=== PATIENT | male | born 1990 | race Two or more races ===

== ENCOUNTER 2024-05-14 21:09 | Emergency (ER) | payer MEDICARE, MEDICAID ==
[~2024-05-14] VITALS: Ht 167.6 cm; Wt 109.0 kg
[2024-05-14 21:13] VITALS: BP 177/111; RESP 18; O2SAT 99
--- NOTE | 2024-05-14 21:27 | ED.PDOC ---
HPI Comments 33 y.o male with PMH of DM, schizophrenia, bipolar disorder, and hyperlipidemia, presents to the ED via EMS for a chief complaint of substernal chest pain associated with dizziness, head and abdominal pain that started earlier today. EMS reports picking patient up from a gas station, noted he had an empty bottle of liquor with him and admitted to smoking 2 grams of methamphetamine today as well throughout the week with marijuana and cocaine. Patient reports after he coughed phlegm up, he became dizzy, described as room spinning and felt "euphoric". Patient also mentions non compliance to medication like metformin in a while now and is not up to date with his health. Chief Complaint: Chest Pain Time Seen by MD: 21:15 Reviewed Notes: Nurses Notes, Ruby On Rails Engineer Notes, Medications, Allergies Information Source: Patient, Emergency Med Personnel Mode of Arrival: EMS Severity: Moderate Timing: Hours Duration: Since onset Location: Substernal Radiation: No Radiation Quality: Aching Onset: At Rest Cardiac Risk Factors: Smoker, Hyperlipidemia, Diabetes PE Risk Factors: None History of: None Modifying Factors: Nothing Associated Signs and Symptoms: Other Past Medical History PAST MEDICAL HISTORY: DM, High Lipids, Schizophrenia Past Medical History (Other): bipolar disorder Surgical History (Other): skin graft Family History Family History: Reviewed,noncontributory to illness Social History Smoker: Cigarettes Alcohol: Heavy Drugs: Cocaine, Marijuana, Methamphetamine Lives In: Homeless Constitutional: denies: chills, diaphoresis, fatigue, fever, malaise, sweats, weakness, others EENTM: denies: blurred vision, double vision, ear bleeding, ear discharge, ear drainage, ear pain, ear ringing, eye pain, eye redness, hearing loss, mouth pain, mouth swelling, nasal discharge, nose bleeding, nose congestion, nose pain, photophobia, tearing, throat pain, throat swelling, voice changes, others Respiratory: denies: cough, hemoptysis, orthopnea, SOB at rest, shortness of breath, SOB with excertion, stridor, wheezing, others Cardiovascular: reports: chest pain; denies: dizzy spells, diaphoresis, Dyspnea on exertion, edema, irregular heart beat, left arm pain, lightheadedness, palpitations, PND, syncope, others Gastrointestinal: reports: abdominal pain; denies: abdomen distended, blood streaked bowels, constipated, diarrhea, dysphagia, difficulty swallowing, hematemesis, melena, nausea, poor appetite, poor fluid intake, rectal bleeding, rectal pain, vomiting, others Genitourinary: denies: burning, dysuria, flank pain, frequency, hematuria, incontinence, penile discharge, penile sore, pain, testicle pain, testicle swelling, urgency, others Neurological: reports: dizziness, headache; denies: fainting, left sided numbness, left sided weakness, numbness, paresthesia, pre-existing deficit, right sided numbness, right sided weakness, seizure, speech problems, tingling, tremors, weakness, others Musculoskeletal: denies: back pain, gout, joint pain, joint swelling, muscle pain, muscle stiffness, neck pain, others Integumetry: denies: bruises, change in color, change in hair/nails, dryness, laceration, lesions, lumps, rash, wounds, others Allergic/Immunocompromised: denies: Difficulty Healing, Frequent Infections, Hives, Itching, others Hematologic/Lymphatic: denies: anemia, blood clots, easy bleeding, easy bruising, swollen glands, others Endocrine: denies: excessive hunger, excessive sweating, excessive thirst, excessive urination, flushing, intolerance to cold, intolerance to heat, unexplained weight gain, unexplained weight loss, others Psychiatric: denies: anxiety, bipolar disorder, depression, hopeless, panic disorder, schizophrenia, sleepless, suicidal, others All Other Systems: Reviewed and Negative Physical Exam General Appearance: No Apparent Distress HEENT: Normal ENT Inspection, Pharynx Normal, TMs Normal Neck: Full Range of Motion, Non-Tender, Normal, Normal Inspection Respiratory: Chest Non-Tender, Lungs Clear, No Accessory Muscle Use, No Respiratory Distress, Normal Breath Sounds Cardiovascular: No Edema, No JVD, No Murmur, No Gallop, Normal Peripheral Pulses, Regular Rate/Rhythm Breast Exam: Deferred Gastrointestinal: No Organomegaly, Non Tender, No Pulsatile Mass, Normal Bowel Sounds, Soft Genitalia: Deferred Pelvic: Deferred Rectal: Deferred Extremities: No calf tenderness, Normal capillary refill, Normal inspection, Normal range of motion, Non-tender, No pedal edema Musculoskeletal : Apperance: Normal Neurologic: Alert, 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 Was a procedure done?: No CP Differential Dx Differential Diagnosis: Anxiety / Panic Attack Differential Diagnosis: Angina, Chest Wall Pain, Cholelithiasis, Costochondritis, Myocardial Infarction, Pericarditis X-Ray, Labs, Meds, VS Vital Signs Date Time Temp Pulse Resp B/P (MAP) Pulse Ox O2 Delivery O2 Flow Rate FiO2 05/14/24 21:13 98.0 74 18 177/111 (133) 99 05/14/24 21:11 75 Lab Test 05/14/24 21:30 05/14/24 21:25 Range/Units White Blood Count 10.5 4.4-10.8 10^3/uL Red Blood Count 5.06 4.5-5.90 10^6/uL Hemoglobin 16.7 13.5-17.5 g/dL Hematocrit 47.0 41.0-53.0 % Mean Corpuscular Volume 93.1 80.0-100.0 fL Mean Corpuscular Hemoglobin 33.1 H 28.0-32.0 pg Mean Corpuscular Hemoglobin Concent 35.6 32.0-36.0 g/dL Red Cell Distribution Width 12.7 11.8-14.3 % Platelet Count 171 140-450 10^3/uL Mean Platelet Volume 8.0 6.9-10.8 fL Neutrophils (%) (Auto) 75.3 37.0-80.0 % Lymphocytes (%) (Auto) 14.4 10.0-50.0 % Monocytes (%) (Auto) 8.2 0.0-12.0 % Eosinophils (%) (Auto) 1.6 0.0-7.0 % Basophils (%) (Auto) 0.5 0.0-2.0 % Neutrophils # (Auto) 7.9 1.6-8.6 10 ^3/uL Lymphocytes # (Auto) 1.5 0.4-5.4 10 ^3/uL Monocytes # (Auto) 0.9 0-1.3 10 ^3/uL Eosinophils # (Auto) 0.2 0-0.8 10 ^3/uL Basophils # (Auto) 0.1 0-0.2 10 ^3/uL Nucleated Red Blood Cells 0.0 % Sodium Level 134 L 136-145 mmol/L Potassium Level 3.1 L 3.5-5.1 mmol/L Chloride Level 102 98-107 mmol/L Carbon Dioxide Level 23 20-31 mmol/L Anion Gap 9 5-15 Blood Urea Nitrogen Pending Creatinine Pending Glomerular Filtration Rate Calc Pending BUN/Creatinine Ratio Pending Serum Glucose Pending Calcium Level 10.6 H 8.7-10.4 mg/dL Troponin I High Sensitivity Pending Plasma/Serum Blood Alcohol Pending Urine Opiates Screen Neg NEGATIVE Urine Fentanyl Screen Neg NEGATIVE Urine Barbiturates Screen Neg NEGATIVE Urine Phencyclidine Screen Neg NEGATIVE Urine Amphetamines Screen Pos NEGATIVE Urine Benzodiazepines Screen Neg NEGATIVE Urine Cocaine Screen Pos NEGATIVE Urine Cannabinoids Screen Pos NEGATIVE The chest x-ray is negative The patient's CBC and chemistry panel are within normal limits The patient's urine tox is positive for methamphetamines as well as cocaine and marijuana The patient was given substance abuse counseling and the patient was being discharged The patient will return to the emergency department's the condition worsens. Images Reviewed?: Images reviewed and evaluated by me Time of 1ST Reevaluation: 21:20 Reevaluation 1ST: Unchanged Patient Education/Counseling: Diagnosis, Treatment, Prognosis, Need For Follow Up Family Education/Counseling: No Family Present Departure 1 Departure Time of Disposition: 21:56 Impression: Primary Impression: Polysubstance abuse Disposition: 01 HOME / SELF CARE / HOMELESS Condition: Fair Discharged With: Self Critical Care Note Critical Care Time?: No Stability Stability form required: No Heart Score Heart Score: Heart Score Response (Comments) Value History Slightly Suspicious 0 EKG Normal 0 Age <45 0 Risk Factors 1 or 2 risk factors 1 Troponin Normal limit 0 Total 1 I personally scribed for GISELLE STALLWORTH MD ([email or web address]) on 05/14/24 at 21:27. Electronically submitted by Katy Cabrera ([facility]). GISELLE STALLWORTH MD May 14, 2024 21:27
[2024-05-14] MEDS ORDERED: ASPirin 81 mg TAB PO ONE (21:30)
[2024-05-14 21:47] LABS: Basophils # (auto) 0.1 10 ^3/uL (0-0.2); Basophils % (auto) 0.5 % (0.0-2.0); Eosinophils # (auto) 0.2 10 ^3/uL (0-0.8); Eosinophils % (auto) 1.6 % (0.0-7.0); Hemoglobin 16.7 g/dL (13.5-17.5); Lymphocytes # (auto) 1.5 10 ^3/uL (0.4-5.4); Lymphocytes % (auto) 14.4 % (10.0-50.0); Mean Corpuscular Hemoglobin 33.1 pg (28.0-32.0); Mean Corpuscular Hgb Conc. 35.6 g/dL (32.0-36.0); Mean Corpuscular Volume 93.1 fL (80.0-100.0); Monocytes # (auto) 0.9 10 ^3/uL (0-1.3); Monocytes % (auto) 8.2 % (0.0-12.0); Neutrophils # (auto) 7.9 10 ^3/uL (1.6-8.6); Neutrophils % (auto) 75.3 % (37.0-80.0); Platelet Count (auto) 171 10^3/uL (140-450); Red Blood Cells 5.06 10^6/uL (4.5-5.90); Red Cell Distribution Width 12.7 % (11.8-14.3); White Blood Cell 10.5 10^3/uL (4.4-10.8)
[2024-05-14 21:47] LABS: Amphetamine Screen, Urine Pos (NEGATIVE); Barbiturate Scree,Urine Neg (NEGATIVE); Benzodiazephine Screen, Urine Neg (NEGATIVE); Cannabinoid Screen, Urine Pos (NEGATIVE); Cocaine Screen, Urine Pos (NEGATIVE)
[2024-05-14 21:48] LABS: Opiate Scree,Urine Neg (NEGATIVE); Phencyclidine Screen, Urine Neg (NEGATIVE)
[2024-05-14 21:52] LABS: Chloride 102 mmol/L (98-107)
[2024-05-14 21:53] LABS: Anion Gap 9 (5-15); Carbon Dioxide 23 mmol/L (20-31)
[2024-05-14 21:54] LABS: Calcium 10.6 mg/dL (8.7-10.4); Potassium 3.1 mmol/L (3.5-5.1); Sodium 134 mmol/L (136-145)
[2024-05-14 21:57] VITALS: PULSE 74
[2024-05-14 22:00] LABS: Blood Alcohol < 3.0 mg/dL (<10); Blood Urea Nitrogen 8 mg/dL (9-23); Glucose 166 mg/dL (74-106)
--- NOTE | 2024-05-14 22:02 | DVH ---
CHEST RADIOGRAPH Indication: cp Technique: Single frontal view of the chest was obtained COMPARISON: None FINDINGS: Lines and Tubes: None Lungs: Clear Pleura: No effusion. No pneumothorax. Cardiomediastinal contours: Unremarkable Bones: Unremarkable IMPRESSION: 1. No acute disease.
--- NOTE | 2024-05-15 10:41 | ECG ---
[facility] Test Date: 2024-05-14 Test Time: 21:11:15 Pat Name: ARUN LANDAVERDE Department: ED Room: Gender: M Pipeman: : 1990 Requested By: GISELLE STALLWORTH Order Number: [id number] Reading MD: Florentin Hankins Measurements Intervals [place] Rate: 75 P: -13 [place]: 166 QRS: 40 QRSD: 88 T: 53 QT: 387 QTc: 433 Interpretive Statements Sinus rhythm Atrial premature complex Electronically Signed On 05-21-2024 14:56:13 PST by Florentin Hankins Please click the below link to view image of tracing.
== END 2024-05-14 23:32 | disposition home or self-care (01) ==
LOC: EDBD 21:09 → ER 21:09
DX: F19.10 Other psychoactive substance abuse, uncomplicated (principal); E11.9 Type 2 diabetes mellitus without complications; E78.5 Hyperlipidemia, unspecified; F20.9 Schizophrenia, unspecified; F31.9 Bipolar disorder, unspecified; F17.210 Nicotine dependence, cigarettes, uncomplicated; F10.90 Alcohol use, unspecified, uncomplicated; Z98.890 Other specified postprocedural states; Z59.00 Homelessness unspecified; Z79.899 Other long term (current) drug therapy; Y90.0 Blood alcohol level of less than 20 mg/100 ml
CPT/HCPCS: 36415; 71045; 80048; 80307; 80320; 84484; 85025; 93005

== ENCOUNTER 2024-11-30 06:52 | Inpatient (IN) | payer MEDICARE, MEDICAID ==
[~2024-11-30] VITALS: Ht 167.6 cm; Wt 106.2 kg
--- NOTE | 2024-11-30 07:14 | ED.PDOC ---
History of Present Illness HPI Comments this is a 34 year old male presenting to the ED with chief complaint of hyperglycemia and ETOH use. Patient reports that he has been drinking heavily recently with his last beer being 2 hours ago. Patient relays that he has not eaten well with associated headaches since Wednesday, noting that his blood sugar has been elevated due to his heavy drinking. Patient states that he started his Metformin and Insulin again 4 days ago. Patient denies any N/V/D, abdominal pain, chest pain, SOB, dizziness, fever, or chills. Chief Complaint: Hyperglycemia Time Seen by MD: 07:11 Reviewed Notes: Nurses Notes, Medications, Allergies Allergies: Coded Allergies: NO KNOWN ALLERGIES (Unverified , 11/30/24) Information Source: Patient Mode of Arrival: Ambulatory Severity: Moderate Timing: Days Duration: Since onset Prehospital treatment: None Past Medical History PAST MEDICAL HISTORY: DM, High Lipids, HTN, Schizophrenia Past Medical History (Other): Bipolar Surgical History (Other): Skin graft Family History Family History: Reviewed,noncontributory to illness Social History Smoker: Cigarettes Alcohol: Heavy Drugs: Cocaine, Marijuana, Methamphetamine Lives In: Homeless Constitutional: denies: chills, diaphoresis, fatigue, fever, malaise, sweats, weakness, others EENTM: denies: blurred vision, double vision, ear bleeding, ear discharge, ear drainage, ear pain, ear ringing, eye pain, eye redness, hearing loss, mouth pain, mouth swelling, nasal discharge, nose bleeding, nose congestion, nose pain, photophobia, tearing, throat pain, throat swelling, voice changes, others Respiratory: denies: cough, hemoptysis, orthopnea, SOB at rest, shortness of breath, SOB with excertion, stridor, wheezing, others Cardiovascular: denies: chest pain, dizzy spells, diaphoresis, Dyspnea on exertion, edema, irregular heart beat, left arm pain, lightheadedness, palpitations, PND, syncope, others Gastrointestinal: reports: poor appetite; denies: abdomen distended, abdominal pain, blood streaked bowels, constipated, diarrhea, dysphagia, difficulty swall owing, hematemesis, melena, nausea, poor fluid intake, rectal bleeding, rectal pain, vomiting, others Genitourinary: denies: burning, dysuria, flank pain, frequency, hematuria, incontinence, penile discharge, penile sore, pain, testicle pain, testicle swelling, urgency, others Neurological: reports: headache; denies: dizziness, fainting, left sided numbness, left sided weakness, numbness, paresthesia, pre-existing deficit, right sided numbness, right sided weakness, seizure, speech problems, tingling, tremors, weakness, others Musculoskeletal: denies: back pain, gout, joint pain, joint swelling, muscle pain, muscle stiffness, neck pain, others Integumetry: denies: bruises, change in color, change in hair/nails, dryness, laceration, lesions, lumps, rash, wounds, others Allergic/Immunocompromised: denies: Difficulty Healing, Frequent Infections, Hives, Itching, others Hematologic/Lymphatic: denies: anemia, blood clots, easy bleeding, easy bruising, swollen glands, others Endocrine: denies: excessive hunger, excessive sweating, excessive thirst, excessive urination, flushing, intolerance to cold, intolerance to heat, unexplained weight gain, unexplained weight loss, others Psychiatric: denies: anxiety, bipolar disorder, depression, hopeless, panic disorder, schizophrenia, sleepless, suicidal, others All Other Systems: Reviewed and Negative Physical Exam General Appearance: Moderate Distress, Normal HEENT: Normal ENT Inspection, Pharynx Normal, TMs Normal Neck: Full Range of Motion, Non-Tender, Normal, Normal Inspection Respiratory: Chest Non-Tender, Lungs Clear, No Accessory Muscle Use, No Respiratory Distress, Normal Breath Sounds Cardiovascular: No Edema, No JVD, No Murmur, No Gallop, Normal Peripheral Pulses, Regular Rate/Rhythm Breast Exam: Deferred Gastrointestinal: No Organomegaly, Non Tender, No Pulsatile Mass, Normal Bowel Sounds, Soft Genitalia: Deferred Pelvic: Deferred Rectal: Deferred Extremities: No calf tenderness, Normal capillary refill, Normal inspection, Normal range of motion, Non-tender, No pedal edema Musculoskeletal : Apperance: Normal Neurologic: 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 Was a procedure done?: No Differential Dx Considerations may include: Anemia Electrolyte imbalance X-Ray, Labs, Meds, VS Vital Signs Date Time Temp Pulse Resp B/P (MAP) Pulse Ox O2 Delivery O2 Flow Rate FiO2 11/30/24 08:00 88 20 96 Room Air* 0 21 11/30/24 07:54 88 20 96 Room Air 11/30/24 07:54 98.0 88 20 146/88 (107) 96 98.0 11/30/24 06:52 98.0 87 18 120/87 97 98.0 Lab Test 11/30/24 07:42 11/30/24 07:30 Range/Units Urine Color Pending Urine Clarity Pending Urine pH Pending Urine Specific Aragon Pending Urine Protein Pending Urine Ketones Pending Urine Blood Pending Urine Nitrite Pending Urine Bilirubin Pending Urine Urobilinogen Pending Urine Leukocyte Esterase Pending Urine RBC Pending Urine Microscopic WBC Pending Urine Squamous Epithelial Cells Pending Urine Bacteria Pending Urine Glucose Pending White Blood Count 8.1 4.4-10.8 10^3/uL Red Blood Count 5.24 4.5-5.90 10^6/uL Hemoglobin 17.5 13.5-17.5 g/dL Hematocrit 48.2 41.0-53.0 % Mean Corpuscular Volume 91.8 80.0-100.0 fL Mean Corpuscular Hemoglobin 33.4 H 28.0-32.0 pg Mean Corpuscular Hemoglobin Concent 36.4 H 32.0-36.0 g/dL Red Cell Distribution Width 12.8 11.8-14.3 % Platelet Count 167 140-450 10^3/uL Mean Platelet Volume 7.5 6.9-10.8 fL Neutrophils (%) (Auto) 70.3 37.0-80.0 % Lymphocytes (%) (Auto) 19.7 10.0-50.0 % Monocytes (%) (Auto) 7.5 0.0-12.0 % Eosinophils (%) (Auto) 1.8 0.0-7.0 % Basophils (%) (Auto) 0.7 0.0-2.0 % Neutrophils # (Auto) 5.7 1.6-8.6 10 ^3/uL Lymphocytes # (Auto) 1.6 0.4-5.4 10 ^3/uL Monocytes # (Auto) 0.6 0-1.3 10 ^3/uL Eosinophils # (Auto) 0.1 0-0.8 10 ^3/uL Basophils # (Auto) 0.1 0-0.2 10 ^3/uL Nucleated Red Blood Cells 0.0 % Sodium Level 136 136-145 mmol/L Potassium Level 3.5 3.5-5.1 mmol/L Chloride Level 100 98-107 mmol/L Carbon Dioxide Level 24 20-31 mmol/L Anion Gap 12 5-15 Blood Urea Nitrogen 6 L 9-23 mg/dL Creatinine 0.85 0.700-1.30 mg/dL Glomerular Filtration Rate Calc 115 >90 mL/min BUN/Creatinine Ratio 7.1 L 10.0-20.0 Serum Glucose 118 H 74-106 mg/dL Calcium Level 10.0 8.7-10.4 mg/dL Plasma/Serum Blood Alcohol 29.4 H <10 mg/dL Current Medications Medications (Trade) Dose Ordered Sig/Antonia Route Start Time Stop Time Status Last Admin Sodium Chloride 1,000 ml @ 1,000 mls/hr Q1H ONCE IV 11/30/24 07:15 11/30/24 08:14 11/30/24 07:44 Ondansetron HCl (Zofran) 4 mg ONCE ONCE IV 11/30/24 07:45 11/30/24 07:46 DC 11/30/24 07:53 Thiamine HCl 100 mg ONCE ONCE IV 11/30/24 07:45 11/30/24 07:46 DC 11/30/24 07:54 Patient alert. Has been drinking regularly. Last drink was few hours ago. Vitals stable. Ambulating. Continues to smoke cigarettes. Continues to drink alcohol. Counseled patient on effects of smoking cigarettes for 15 minutes. Counseled patient on effects of drinking for 15 minutes. History of psychiatric illness. Denies suicidal or homicidal ideation. Establish intravenous access. Was given fluids. Explained to the patient that he will be admitted for treatment. Continue to monitor. Chest XR: [facility] [address] [place] - [address] Ph: [phone] DIAGNOSTIC IMAGING Diagnostic Imaging Report : [id number] Signed PATIENT: ARUN LANDAVERDE ACCT: [id number] UNIT: [id number] : 1990 LOC: ER ROOM / BED: / AGE / SEX: 34 / M ADM STATUS: REG ER SERVICE 9 ORDERING PHYSICIAN: RICHMOND MOSS MD PROCEDURE(s): CXRP - CHEST PORTABLE REASON: sob ORDER NUMBER(s): [id number], ACCESSION NUMBER(s): [id number] CHEST RADIOGRAPH Indication: sob Technique: Single frontal view of the chest was obtained Comparison: XY CHEST PORTABLE on DOS: 05/14/24 FINDINGS: Lines and Tubes: None Lungs: No focal consolidation. Pleura: No effusion. No pneumothorax. Cardiomediastinal contours: Unremarkable Bones: No acute osseous abnormality. IMPRESSION: 1. No acute cardiopulmonary disease. ATED BY: TONE BERG MD DICTATED DATE/TIME: 11/30/24739 SIGNED BY: TONE BERG MD SIGNED DATE/TIME: 11/30/24739 CC: Images Reviewed?: Images reviewed and evaluated by me Time of 1ST Reevaluation: 08:11 Reevaluation 1ST: Unchanged Patient Education/Counseling: Diagnosis, Treatment Family Education/Counseling: No Family Present SEPSIS Sepsis Screen Date sepsis recognized/suspect: Nov 30, 2024 Time Sepsis recognized/suspect: 0652 Recent Procedure: No On Antibiotic Therapy: No Respiratory Rate >20: No Heart Rate >90: No Temp<36 C (96.8 F) or >38.3 C: No SBP <90 or MAP <65 mmHG: No New Acute Mental Status Change: No Is the patient on CPAP, BIPAP,: No Physician Orders Chest Portable (11/30/24 07:10) Urinalysis (11/30/24 07:10) Sodium Chloride 0.9% (11/30/24 07:15) Saline Lock (11/30/24 07:39) Vital Signs Date Time Temp Pulse Resp B/P (MAP) Pulse Ox O2 Delivery O2 Flow Rate FiO2 11/30/24 08:00 88 20 96 Room Air* 0 21 11/30/24 07:54 88 20 96 Room Air 11/30/24 07:54 98.0 88 20 146/88 (107) 96 98.0 11/30/24 06:52 98.0 87 18 120/87 97 98.0 Laboratory Tests Test 11/30/24 07:30 White Blood Count 8.1 10^3/uL (4.4-10.8) Medications Medications Dose Ordered Sig/Antonia Route Start Time Stop Time Status Last Admin Dose Admin Ondansetron HCl 4 mg ONCE ONCE IV 11/30/24 07:45 11/30/24 07:46 DC 11/30/24 07:53 Sodium Chloride 1,000 ml @ 1,000 mls/hr Q1H ONCE IV 11/30/24 07:15 11/30/24 08:14 11/30/24 07:44 Thiamine HCl 100 mg ONCE ONCE IV 11/30/24 07:45 11/30/24 07:46 DC 11/30/24 07:54 Departure 1 Departure Time of Disposition: 07:31 Impression: Primary Impression: Uncontrolled diabetes mellitus Qualified Codes: E13.65 - Other specified diabetes mellitus with hyperglycemia Additional Impression: Pneumonitis Disposition: ADMITTED INPATIENT Admit to: Med Surg Condition: Guarded Critical Care Note Critical Care Time?: Yes (90 min-critical care time only) Stability Stability form required: No Heart Score Heart Score: Heart Score Response (Comments) Value History N/A 0 EKG N/A 0 Age N/A 0 Risk Factors N/A 0 Troponin N/A 0 Total 0 I personally scribed for RICHMOND MOSS MD ([email or web address]) on 11/30/24 at 07:14. Electronically submitted by Omar Horton ([email or web address]). I personally scribed for RICHMOND MOSS MD ([email or web address]) on 11/30/24 at 08:14. Electronically submitted by Omar Horton ([email or web address]). RICHMOND MOSS MD Nov 30, 2024 07:14
[2024-11-30] MEDS: SODIUM CHLORIDE 0.9% 1,000 ML IV ONE ×2 (07:39→07:44)
--- NOTE | 2024-11-30 07:42 | DVH ---
CHEST RADIOGRAPH Indication: sob Technique: Single frontal view of the chest was obtained Comparison: XY CHEST PORTABLE on DOS: 05/14/24 FINDINGS: Lines and Tubes: None Lungs: No focal consolidation. Pleura: No effusion. No pneumothorax. Cardiomediastinal contours: Unremarkable Bones: No acute osseous abnormality. IMPRESSION: 1. No acute cardiopulmonary disease.
[2024-11-30 07:50] LABS: Hematocrit 48.2 % (41.0-53.0); Hemoglobin 17.5 g/dL (13.5-17.5); Mean Corpuscular Hemoglobin 33.4 pg (28.0-32.0); Mean Corpuscular Volume 91.8 fL (80.0-100.0); Nucleated Red Blood Cells % 0.0 %
[2024-11-30] MEDS: ONDANSETRON HCL 4 MG/2 ML VIAL IV ONE (07:53)
[2024-11-30] MEDS: THIAMINE 100mg/ml INJ (200mg/2ml VIAL) IV ONE (07:54)
[2024-11-30 07:56] LABS: Chloride 100 mmol/L (98-107); Potassium 3.5 mmol/L (3.5-5.1); Sodium 136 mmol/L (136-145)
[2024-11-30 07:57] LABS: Anion Gap 12 (5-15); Calcium 10.0 mg/dL (8.7-10.4); Carbon Dioxide 24 mmol/L (20-31)
[2024-11-30 08:00] VITALS: PULSE 88; RESP 20; O2SAT 96
[2024-11-30 08:02] LABS: BUN/Creatinine Ratio 7.1 (10.0-20.0)
[2024-11-30 08:05] LABS: Blood Urea Nitrogen 6 mg/dL (9-23); Glucose 118 mg/dL (74-106)
[2024-11-30 08:15] LABS: Urine Protein, UAD Negative (Negative)
[2024-11-30] MEDS ORDERED: ONDANSETRON HCL 4 MG/2 ML VIAL IV PRN (10:00)
[2024-11-30] MEDS ORDERED: DOCUSATE SOD 100 MG CAP PO PRN (10:00)
[2024-11-30] MEDS ORDERED: NITROGLYCERIN 0.4 MG SL TAB SL PRN (10:00)
[2024-11-30] MEDS ORDERED: LORazepam 2MG/ML-1ML VIAL IV PRN (10:00)
[2024-11-30] MEDS ORDERED: IPRATROPIUM BROM 0.5 MG/2.5ML INH SOL NEB PRN (10:15)
[2024-11-30] MEDS ORDERED: ALBUTEROL SULF 2.5 MG/0.5ML(0.5%) NEB SOLN NEB PRN (10:15)
[2024-11-30 10:23] VITALS: BP 139/94; PULSE 103; TEMP 98.3
[2024-11-30] MEDS: PANTOPRAZOLE 40 MG/10 ML VIAL INJ IV ONE (10:23)
[2024-11-30] MEDS ORDERED: DEXTROSE (50%) 50ML SYRG IV PRN (10:30)
[2024-11-30] MEDS: ALBUTEROL SULF 2.5 MG/0.5ML(0.5%) NEB SOLN NEB ONE (10:32)
[2024-11-30] MEDS: IPRATROPIUM BROM 0.5 MG/2.5ML INH SOL NEB ONE (10:32)
--- NOTE | 2024-11-30 10:32 | DVHHP2 ---
History of Present Illness Reason for Visit: going through [facility] History of Present Illness 34-year-old male with a past medical history of type 2 diabetes mellitus, hyperlipidemia, schizophrenia, bipolar disorder, and prior skin graft presents with concerns about blood sugar levels. He reports checking his glucose at home, with readings ranging from 261 to as high as 500. He states he was started on metformin and insulin four days ago and has been taking medications as prescribed. He is currently homeless, living in his car. He admits to daily alcohol use (last drink two hours prior to ED arrival), smoking cigarettes, and prior use of cocaine, marijuana, and methamphetamine (last reported use 5 months ago). He has had poor oral intake since Wednesday and feels as if he is experiencing alcohol withdrawal. He denies vomiting, diarrhea, chest pain, or shortness of breath.In the ED, blood alcohol level was 29.4 CBC was unremarkable, BMP was unremarkable, glucose was 117 , and no evidence of DKA. Vital signs stable. Given his comorbidities, poor oral intake, recent hyperglycemia, alcohol use, and psychosocial instability, decision made to admit for further monitoring, stabilization, and supportive care. pt will be admitted for further workup Past Medical History See HPI above Past Surgical History See HPI above Family History Reviewed, non-contributory to the management of this case. Past Social History Patient does smoke by history does cocaine and marijuana and meth he states last time use was six months ago Review of Systems Constitutional: No: Fever, Chills, Sweats, Weakness, Malaise, Other Eyes: No: Pain, Vision change, Conjunctivae inflammation, Eyelid inflammation, Other, Redness ENT: No: Ear pain, Ear discharge, Nose pain, Nose discharge, Nose congestion, Mouth pain, Mouth swelling, Throat pain, Throat swelling, Other Respiratory: No: Cough, Dry, Shortness of breath, SOB with excertion, Wheezing, Hemoptysis, Pleuritic Pain, Sputum, Wheezing, Other Cardiovascular: No: Chest Pain, Palpitations, Orthopnea, Paroxysmal Noc. Dyspnea, Edema, Lt Headedness, Other Gastrointestinal: No: Nausea, Vomiting, Abdominal Pain, Diarrhea, Constipation, Melena, Hematochezia, Other Genitourinary: No Dysuria, No Frequency, No Incontinence, No Hematuria, No Retention, No Other Musculoskeletal: No: other, neck pain, shoulder pain, arm pain, back pain, hand pain, leg pain, foot pain Skin: No: Rash, Lesions, Jaundice, Bruising, Other Neurological: Weakness; No: Numbness, Incoordination, Change in speech, Confusion, Seizures, Other Allergies: Coded Allergies: NO KNOWN ALLERGIES (Unverified , 11/30/24) Medications Current Medications Medications Dose Ordered Sig/Antonia Route Start Time Stop Time Status Last Admin Dose Admin Sodium Chloride 1,000 ml @ 120 mls/hr [id number] IV 11/30/24 10:00 UNV Ondansetron HCl 4 mg Q4HP PRN IV 11/30/24 10:00 UNV Docusate Sodium 100 mg BIDPRN PRN PO 11/30/24 10:00 UNV Enoxaparin Sodium 40 mg DAILY SC 11/30/24 10:00 UNV Lorazepam 1 mg Q2HPRN PRN IV 11/30/24 10:00 UNV Exam Vital Signs Vital Signs Date Time Temp Pulse Resp B/P (MAP) Pulse Ox O2 Delivery O2 Flow Rate FiO2 11/30/24 08:00 88 20 96 Room Air* 0 21 11/30/24 07:54 98.0 146/88 (107) 98.0 General Appearance: Alert, Oriented X3, Cooperative, No acute distress HEENT: Atraumatic, PERRLA, EOMI, Mucous membr. moist/pink Respiratory: Normal air movement, Other (Coarse wheezes heard throughout) Cardiovascular: Regular rate, Normal S1, Normal S2, No murmurs Abdominal: Normal bowel sounds, Soft, No tenderness, No hepatospenomegaly, No masses Extremities: No clubbing, No cyanosis, No edema, Normal pulses, No tenderness/swelling Skin: No rashes, No breakdown, No significant lesion Neuro: Normal gait, Normal speech, Strength at 5/5 X4 ext, Normal tone, Sensation intact, Cranial nerves 3-12 NL Psych/Mental Status: Mental status NL, Mood NL Labs/Xrays I reviewed labs, imaging CT scan abdomen pelvis, EKG and all diagnostic studies on this patient from ED records and the medical chart Labs Test 11/30/24 08:10 11/30/24 07:42 11/30/24 07:30 Range/Units POC Glucose 117 H 70-106 mg/dl Urine Color Light-yellow Yellow Urine Clarity Clear Clear Urine pH 6.5 5.0-9.0 Urine Specific [place] 1.008 1.001-1.035 Urine Protein Negative Negative Urine Ketones Negative Negative Urine Blood Negative Negative /uL Urine Nitrite Negative Negative Urine Bilirubin Negative Negative Urine Urobilinogen Normal Negative mg/dL Urine Leukocyte Esterase Negative Negative /uL Urine RBC None seen 0 - 3 /hpf Urine Microscopic WBC < 1 0-3 /HPF Urine Squamous Epithelial Cells Few <5 /hpf Urine Bacteria None seen None Seen /hpf Urine Glucose Normal Normal mg/dL White Blood Count 8.1 4.4-10.8 10^3/uL Red Blood Count 5.24 4.5-5.90 10^6/uL Hemoglobin 17.5 13.5-17.5 g/dL Hematocrit 48.2 41.0-53.0 % Mean Corpuscular Volume 91.8 80.0-100.0 fL Mean Corpuscular Hemoglobin 33.4 H 28.0-32.0 pg Mean Corpuscular Hemoglobin Concent 36.4 H 32.0-36.0 g/dL Red Cell Distribution Width 12.8 11.8-14.3 % Platelet Count 167 140-450 10^3/uL Mean Platelet Volume 7.5 6.9-10.8 fL Neutrophils (%) (Auto) 70.3 37.0-80.0 % Lymphocytes (%) (Auto) 19.7 10.0-50.0 % Monocytes (%) (Auto) 7.5 0.0-12.0 % Eosinophils (%) (Auto) 1.8 0.0-7.0 % Basophils (%) (Auto) 0.7 0.0-2.0 % Neutrophils # (Auto) 5.7 1.6-8.6 10 ^3/uL Lymphocytes # (Auto) 1.6 0.4-5.4 10 ^3/uL Monocytes # (Auto) 0.6 0-1.3 10 ^3/uL Eosinophils # (Auto) 0.1 0-0.8 10 ^3/uL Basophils # (Auto) 0.1 0-0.2 10 ^3/uL Nucleated Red Blood Cells 0.0 % Sodium Level 136 136-145 mmol/L Potassium Level 3.5 3.5-5.1 mmol/L Chloride Level 100 98-107 mmol/L Carbon Dioxide Level 24 20-31 mmol/L Anion Gap 12 5-15 Blood Urea Nitrogen 6 L 9-23 mg/dL Creatinine 0.85 0.700-1.30 mg/dL Glomerular Filtration Rate Calc 115 >90 mL/min BUN/Creatinine Ratio 7.1 L 10.0-20.0 Serum Glucose 118 H 74-106 mg/dL Calcium Level 10.0 8.7-10.4 mg/dL Plasma/Serum Blood Alcohol 29.4 H <10 mg/dL SEPSIS Sepsis Screen Date sepsis recognized/suspect: Nov 30, 2024 Time Sepsis recognized/suspect: 651 Recent Procedure: No On Antibiotic Therapy: No Respiratory Rate >20: No Heart Rate >90: No Temp<36 C (96.8 F) or >38.3 C: No SBP <90 or MAP <65 mmHG: No New Acute Mental Status Change: No Is the patient on CPAP, BIPAP,: No Physician Orders Chest Portable (11/30/24 07:10) Saline Lock (11/30/24 07:39) Admit (11/30/24 09:52) Allergies (11/30/24:52) Code Status (11/30/24 09:52) 0.9% Ns 1000 Ml (11/30/24 10:00) Ondansetron Hcl (Zofran) (11/30/24 10:00) Docusate Sodium Capsule (Colace Capsule) (11/30/24 10:00) Complete Blood Count (12/01/24 04:00) Comprehensive Metabolic Panel (12/01/24 04:00) Condition: Stable (11/30/24 09:52) BRP (11/30/24:52) Sequential Compression Device (11/30/24 ) Lovenox 40mg (11/30/24 10:00) Ativan 1mg Iv Q2hr Prn (11/30/24 10:00) Nitroglycerin Sublingual (Ntrostat Subli (11/30/24 10:00) Stat Ekg For Chest Pain (11/30/24:52) Notify Of Changes From Base (11/30/24:52) 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 Worker 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 (11/30/24:52) Emergency Dysrhythmia Protocol (11/30/24:52) Rhythm Strips Once Every Shift (11/30/24:52) Oxygen By Nasal Cannula (7/31/25 09:52) Pantoprazole (Protonix) (11/30/24 10:00) Pantoprazole (Protonix) (11/30/24 10:00) Seizure Assessment (11/30/24 09:52) Seizure Precautions (11/30/24 ) Seizure Precautions In Place (11/30/24 09:52) Vital Signs Date Time Temp Pulse Resp B/P (MAP) Pulse Ox O2 Delivery O2 Flow Rate FiO2 11/30/24 08:00 88 20 96 Room Air* 0 21 11/30/24 07:54 88 20 96 Room Air 11/30/24 07:54 98.0 88 20 146/88 (107) 96 98.0 11/30/24 06:52 98.0 87 18 120/87 97 98.0 Laboratory Tests Test 11/30/24 07:30 White Blood Count 8.1 10^3/uL (4.4-10.8) Medications Medications Dose Ordered Sig/Antonia Route Start Time Stop Time Status Last Admin Dose Admin Ondansetron HCl 4 mg ONCE ONCE IV 11/30/24 07:45 11/30/24 07:46 DC 11/30/24 07:53 4 MG Sodium Chloride 1,000 ml @ 1,000 mls/hr Q1H ONCE IV 11/30/24 07:15 11/30/24 08:14 DC 11/30/24 07:44 1,000 MLS/HR Thiamine HCl 100 mg ONCE ONCE IV 11/30/24 07:45 11/30/24 07:46 DC 11/30/24 07:54 100 MG Assessment/Plan Assessment/Plan 34yr male with Hyperglycemia in a patient with type 2 diabetes and alcohol use disorder, with poor oral intake and risk for alcohol withdrawal. 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 ordered librium ordered ativan prn ordered seizure precautions Type 2 Diabetes Mellitus with hyperglycemia hold metformin for now Continue scheduled insulin with sliding scale coverage Monitor glucose AC/HS Monitor for signs of DKA or HHS chronic problems Bipolar disorder / Schizophrenia Continue home psychiatric medications if available/verified Hyperlipidemia Continue home lipid-lowering therapy if available/verified Homelessness Social work consult for housing resources, support services, and potential placement Type 2 Diabetes Mellitus Hyperlipidemia Alcohol use disorder FEN / PPx Fluids: IV hydration PRN Electrolytes: Monitor daily Nutrition: Diabetic diet DVT Prophylaxis: Enoxaparin (unless contraindicated) GI Prophylaxis: Protonix Disposition Admit to medicine for glucose monitoring, withdrawal precautions, stabilization, and coordination of outpatient follow-up with social support. Plan discussed with: Patient My Orders Orders - BEATRICE RUSS DNP Procedure Category Date Status Time Admit ADMIT 11/30/24 Transmitted 09:52 Allergies [facility] 11/30/24 Transmitted 09:52 Code Status CODE 11/30/24 Transmitted 09:52 0.9% Ns 1000 Ml PHA 11/30/24 Transmitted 10:00 Ondansetron Hcl PHA 11/30/24 Transmitted (Zofran) 10:00 Docusate Sodium [facility] 11/30/24 Transmitted Capsule (Colace 10:00 Complete Blood Count LAB 12/01/24 Verified 04:00 Comprehensive LAB 12/01/24 Verified Metabolic Panel 04:00 Condition: Stable [facility] 11/30/24 Transmitted 09:52 BRP [facility] 11/30/24 Transmitted 09:52 Sequential [facility] 11/30/24 Transmitted Compression Device Lovenox 40mg [facility] 11/30/24 Transmitted 10:00 Ativan 1mg Iv Q2hr Prn [facility] 11/30/24 Transmitted 10:00 Nitroglycerin [facility] 11/30/24 Transmitted Sublingual (Ntrostat 10:00 Stat Ekg For Chest [facility] 11/30/24 Transmitted Pain 09:52 Notify Md Of Changes [facility] 11/30/24 Transmitted From Base 09:52 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 Worker For [facility] 11/30/24 Transmitted 24 Hours 09:52 Emergency Dysrhythmia [facility] 11/30/24 Transmitted Protocol 09:52 Rhythm Strips Once [facility] 11/30/24 Transmitted Every Shift 09:52 Oxygen By Nasal RT 11/30/24 Transmitted Cannula 09:52 Pantoprazole [facility] 11/30/24 Transmitted (Protonix) 10:00 Pantoprazole PHA 11/30/24 Transmitted (Protonix) 10:00 Seizure Assessment [facility] 11/30/24 Transmitted 09:52 Seizure Precautions ED NURSING 11/30/24 Transmitted Seizure Precautions [facility] 11/30/[address] 09:52 Date of Service: Nov 30, 2024 Billing Provider: BEATRICE RUSS DNP Common Visit Codes: [id number] INP/OBS CARE (HIGH) BEATRICE RUSS DNP Nov 30, 2024 10:32
[2024-11-30 10:33] VITALS: RESP 18; O2SAT 98
[2024-11-30] MEDS: ENOXAPARIN SOD 40 MG/0.4 ML SYRINGE SC SCH (10:35)
[2024-11-30] MEDS: SODIUM CHLORIDE 0.9% 1,000 ML IV SCH (11:09)
[2024-11-30] MEDS: ACCU-CHEK COMFORT CURVE STRIP VI SCH (12:15)
[2024-11-30] MEDS: InsuLIN REG 1unit/0.01ml Soln (100units/ml) SC SCH (12:20)
[2024-11-30] MEDS ORDERED: FOLIC ACID 1 MG, MAGNESIUM SULF SDV 50% 8 MEQ, MULTIPLE VITAMIN 10 ML, THIAMINE INJ 100... INJ SCH (18:00)
[2024-12-01] MEDS ORDERED: PANTOPRAZOLE 40 MG/10 ML VIAL INJ IV SCH (10:00)
== END 2024-11-30 12:50 | disposition left against medical advice (07) | DRG 638 ==
LOC: ER 06:52 → OVERFLOW 09:52
PROVIDERS: ADMIT Nurse Practitioner Family; ATTEND Nurse Practitioner Family
DX: E11.65 Type 2 diabetes mellitus with hyperglycemia (principal); Z59.02 Unsheltered homelessness; F17.210 Nicotine dependence, cigarettes, uncomplicated; F10.129 Alcohol abuse with intoxication, unspecified; Z53.29 Procedure and treatment not carried out because of patient's decision for other reasons; F20.9 Schizophrenia, unspecified; F31.9 Bipolar disorder, unspecified; I10 Essential (primary) hypertension; J98.4 Other disorders of lung; E78.5 Hyperlipidemia, unspecified; Z79.899 Other long term (current) drug therapy; Y90.1 Blood alcohol level of 20-39 mg/100 ml
CPT/HCPCS: 36415; 71045; 80048; 80320; 81001; 82962; 85025; 94640; 96361; 96374; 96375; 99291; 99292; G0378; J1815; J2405; J2470

== ENCOUNTER 2025-02-01 17:30 | Inpatient (IN) | payer MEDICARE, MEDICAID ==
[~2025-02-01] VITALS: Ht 167.6 cm; Wt 114.8 kg
[2025-02-01 18:01] VITALS: PULSE 84; RESP 18; O2SAT 98
[2025-02-01] MEDS: KETOROLAC TROMETH 30 MG/ML 1ML VIAL IV ONE (18:22)
--- NOTE | 2025-02-01 18:31 | ED.PDOC ---
Musculoskeletal HPI Comments 34-year-old male who came to ER for lower extremity pain. Patient states he jumped off a ladder earlier today, and landed baly on his left lower extremity. Complaining of left lower leg and left ankle pain. Denies any head trauma or loss of consciousness Chief Complaint: Lower Extremity Time Seen by MD: 18:30 Reviewed Notes: Nurses Notes Allergies: Coded Allergies: NO KNOWN ALLERGIES (Unverified , 11/30/24) Information Source: Patient Mode of Arrival: EMS Location: Left Extremity Location: Ankle, Leg Timing: Minutes Severity: Moderate Able to Move Extremity: Yes Bear Weight: Limited, No Pain: Moderate Hand Dominance: Right Mechanism: Twisting Circumstances: Fall Onset of Symptoms: After Trauma Symptoms: Swelling, Pain Associated signs and symptoms: Ankle pain, Leg pain Past Medical History PAST MEDICAL HISTORY: DM, High Lipids, HTN, Schizophrenia Family History Family History: Reviewed,noncontributory to illness Social History Smoker: Cigarettes Alcohol: Heavy Drugs: Cocaine, Marijuana, Methamphetamine Lives In: Home Constitutional: denies: chills, diaphoresis, fatigue, fever, malaise, sweats, weakness, others EENTM: denies: blurred vision, double vision, ear bleeding, ear discharge, ear drainage, ear pain, ear ringing, eye pain, eye redness, hearing loss, mouth pain, mouth swelling, nasal discharge, nose bleeding, nose congestion, nose pain, photophobia, tearing, throat pain, throat swelling, voice changes, others Respiratory: denies: cough, hemoptysis, orthopnea, SOB at rest, shortness of breath, SOB with excertion, stridor, wheezing, others Cardiovascular: denies: chest pain, dizzy spells, diaphoresis, Dyspnea on exertion, edema, irregular heart beat, left arm pain, lightheadedness, palpitations, PND, syncope, others Gastrointestinal: denies: abdomen distended, abdominal pain, blood streaked bowels, constipated, diarrhea, dysphagia, difficulty swallowing, hematemesis, me khurram, nausea, poor appetite, poor fluid intake, rectal bleeding, rectal pain, vomiting, others Genitourinary: denies: burning, dysuria, flank pain, frequency, hematuria, incontinence, penile discharge, penile sore, pain, testicle pain, testicle swelling, urgency, others Neurological: denies: dizziness, fainting, headache, left sided numbness, left sided weakness, numbness, paresthesia, pre-existing deficit, right sided numbness, right sided weakness, seizure, speech problems, tingling, tremors, weakness, others Musculoskeletal: reports: joint pain (Left ankle), muscle pain (Left lower leg); denies: back pain, gout, joint swelling, muscle stiffness, neck pain, others Integumetry: denies: bruises, change in color, change in hair/nails, dryness, laceration, lesions, lumps, rash, wounds, others Allergic/Immunocompromised: denies: Difficulty Healing, Frequent Infections, Hives, Itching, others Hematologic/Lymphatic: denies: anemia, blood clots, easy bleeding, easy brui sing, swollen glands, others Endocrine: denies: excessive hunger, excessive sweating, excessive thirst, ex cessive urination, flushing, intolerance to cold, intolerance to heat, unexplained weight gain, unexplained weight loss, others Psychiatric: denies: anxiety, bipolar disorder, depression, hopeless, panic disorder, schizophrenia, sleepless, suicidal, others Physical Exam General Appearance: No Apparent Distress, Normal HEENT: Normal ENT Inspection, Pharynx Normal, TMs Normal Neck: Full Range of Motion, Non-Tender, Normal, Normal Inspection Respiratory: Chest Non-Tender, Lungs Clear, No Accessory Muscle Use, No Res piratory Distress, Normal Breath Sounds Cardiovascular: No Edema, No JVD, No Murmur, No Gallop, Normal Peripheral Pulses, Regular Rate/Rhythm Breast Exam: Deferred Gastrointestinal: No Organomegaly, Non Tender, No Pulsatile Mass, Normal Bowel Sounds, Soft Genitalia: Deferred Pelvic: Deferred Rectal: Deferred Extremities: No calf tenderness, Normal capillary refill, Normal range of motion, No pedal edema, Swelling (Left ankle), Tender (Left ankle) Musculoskeletal : Apperance: Normal Neurologic: Alert, client server programmer II-XII nml as Tested, No Motor Deficits, Normal Affect, Normal Mood, No Sensory Deficits Cerebellar Function: Normal Reflexes: Normal Skin: Dry, Normal Color, Warm Lymphatic: No Adenopathy Was a procedure done? Was a procedure done?: Yes Sedation Sedation?: No Informed consent obtained: No Other Procedure Procedure Short-leg splint applied to left lower leg Indication Tib-fib fracture Informed consent obtained: Yes Risks, benefits, and alternati: Yes Differential Diagnosis EXT Differential Diagnosis: Cellulitis, Deep Vein Thrombosis, Compartment Syndrome, Fracture, Sprain, Dislocation, Laceration, Contusion, Strain, Septic, Neurovas cular injury, Arthritis, Bursitis, Other X-Ray, Labs, Meds, VS Vital Signs Date Time Temp Pulse Resp B/P (MAP) Pulse Ox O2 Delivery O2 Flow Rate FiO2 02/01/25 22:00 83 16 116/65 (82) 97 02/01/25 21:39 83 16 116/65 02/01/25 21:09 95 18 116/46 02/01/25 19:30 97.9 93 15 108/62 (77) 96 97.9 02/01/25 19:30 Room Air* 0 21 02/01/25 18:01 98.9 84 18 123/69 (87) 98 98.9 02/01/25 18:01 84 18 98 Room Air* 0 21 02/01/25 17:30 98.4 99 13 136/89 97 98.4 Lab Test 02/01/25 19:05 Range/Units White Blood Count 12.3 H 4.4-10.8 10^3/uL Red Blood Count 4.87 4.5-5.90 10^6/uL Hemoglobin 16.0 13.5-17.5 g/dL Hematocrit 44.9 41.0-53.0 % Mean Corpuscular Volume 92.2 80.0-100.0 fL Mean Corpuscular Hemoglobin 32.8 H 28.0-32.0 pg Mean Corpuscular Hemoglobin Concent 35.6 32.0-36.0 g/dL Red Cell Distribution Width 13.1 11.8-14.3 % Platelet Count 162 140-450 10^3/uL Mean Platelet Volume 8.1 6.9-10.8 fL Neutrophils (%) (Auto) 77.2 37.0-80.0 % Lymphocytes (%) (Auto) 14.5 10.0-50.0 % Monocytes (%) (Auto) 6.9 0.0-12.0 % Eosinophils (%) (Auto) 0.9 0.0-7.0 % Basophils (%) (Auto) 0.5 0.0-2.0 % Neutrophils # (Auto) 9.5 H 1.6-8.6 10 ^3/uL Lymphocytes # (Auto) 1.8 0.4-5.4 10 ^3/uL Monocytes # (Auto) 0.9 0-1.3 10 ^3/uL Eosinophils # (Auto) 0.1 0-0.8 10 ^3/uL Basophils # (Auto) 0.1 0-0.2 10 ^3/uL Nucleated Red Blood Cells 0.1 % Prothrombin Time 11.3 9.3-11.8 sec Prothrombin Time INR 1.07 0.9-1.15 Activated Partial Thromboplast Time 29.3 24.5-34.5 SEC Sodium Level 134 L 136-145 mmol/L Potassium Level 3.3 L 3.5-5.1 mmol/L Chloride Level 99 98-107 mmol/L Carbon Dioxide Level 20 20-31 mmol/L Anion Gap 15 5-15 Blood Urea Nitrogen 5 L 9-23 mg/dL Creatinine 0.85 0.700-1.30 mg/dL Glomerular Filtration Rate Calc 115 >90 mL/min BUN/Creatinine Ratio 5.9 L 10.0-20.0 Serum Glucose 180 H 74-106 mg/dL Calcium Level 9.2 8.7-10.4 mg/dL Total Bilirubin 0.7 0.2-1.0 mg/dL Aspartate Amino Transferase (AST) 132 H 13-40 U/L Alanine Aminotransferase (ALT) 148 H 7-40 U/L Alkaline Phosphatase 95 46-116 U/L Total Protein 7.6 5.7-8.2 g/dL Albumin 4.5 3.2-4.8 g/dL Plasma/Serum Blood Alcohol 80.2 H <10 mg/dL Current Medications Medications (Trade) Dose Ordered Sig/Antonia Route Start Time Stop Time Status Last Admin Ketorolac Tromethamine (Toradol Injection) 15 mg ONCE ONCE IV 02/01/25 18:15 02/01/25 18:16 DC 02/01/25 18:22 Morphine Sulfate 4 mg ONCE ONCE IV 02/01/25 21:00 02/01/25 21:01 DC 02/01/25 21:09 Ondansetron HCl (Zofran) 4 mg ONCE ONCE IV 02/01/25 21:00 02/01/25 21:01 DC 02/01/25 21:09 Time of 1ST Reevaluation: 18:27 Reevaluation 1ST: Unchanged Patient Education/Counseling: Diagnosis, Treatment Family Education/Counseling: Need For Follow Up Departure 1 Departure Time of Disposition: 02:00 Impression: Primary Impression: Fracture of left tibia and fibula Additional Impressions: Uncontrolled diabetes mellitus Alcohol intoxication Disposition: ADMITTED INPATIENT Admit to: Med Surg Condition: Guarded Discharged With: Self Comments Patient with comminuted fracture of the tibia with distal fibula fracture and widening of the mortise. Patient was splinted and pain controlled. Patient will need admission for supportive care and orthopedic consultation Critical Care Note Critical Care Time?: No Stability Stability form required: No Heart Score Heart Score: Heart Score Response (Comments) Value History N/A 0 EKG N/A 0 Age N/A 0 Risk Factors N/A 0 Troponin N/A 0 Total 0 I personally scribed for RADHA GREEN MD ([email or web address]) on 02/01/25 at 18:31. Electronically submitted by Gregory Price ([email or web address]). RADHA GREEN MD Feb 01, 2025 18:31
[2025-02-01 19:32] LABS: Hematocrit 44.9 % (41.0-53.0); Hemoglobin 16.0 g/dL (13.5-17.5); Mean Corpuscular Hemoglobin 32.8 pg (28.0-32.0); Mean Corpuscular Volume 92.2 fL (80.0-100.0); Nucleated Red Blood Cells % 0.1 %
[2025-02-01 19:50] LABS: Alanine Aminotransferase 148 U/L (7-40); Albumin 4.5 g/dL (3.2-4.8); Alkaline Phosphatase 95 U/L (46-116); Anion Gap 15 (5-15); BUN/Creatinine Ratio 5.9 (10.0-20.0); Bilirubin, Total 0.7 mg/dL (0.2-1.0); Blood Urea Nitrogen 5 mg/dL (9-23); Calcium 9.2 mg/dL (8.7-10.4); Carbon Dioxide 20 mmol/L (20-31); Chloride 99 mmol/L (98-107); Glucose 180 mg/dL (74-106); Potassium 3.3 mmol/L (3.5-5.1); Sodium 134 mmol/L (136-145); Total Protein 7.6 g/dL (5.7-8.2)
[2025-02-01 19:51] LABS: INR 1.07 (0.9-1.15); Partial Thromboplastin Time 29.3 SEC (24.5-34.5); Prothrombin Time 11.3 sec (9.3-11.8)
--- NOTE | 2025-02-01 20:40 | DVH ---
CLINICAL INDICATION: pain fall off ladder TECHNIQUE: 2 radiographic views of the tibial fibula were obtained. Comparison: None FINDINGS/IMPRESSION: Mildly displaced comminuted distal tibial fracture which is intra-articular and extends into the ankl e mortise tibiotalar joint. HS:Y
--- NOTE | 2025-02-01 20:41 | DVH ---
CLINICAL INDICATION: pain fall off ladder TECHNIQUE: 1 radiographic views of the pelvis were obtained. Comparison: None FINDINGS/IMPRESSION: Fractures or dislocations. Superior and inferior pubic rami appear intact bilaterally. HS:Y
--- NOTE | 2025-02-01 20:42 | DVH ---
CLINICAL INDICATION: pain fall off ladder TECHNIQUE: 3 radiographic views of the foot were obtained. Comparison: None FINDINGS/IMPRESSION: Bony structures of the left foot on in normal alignment and intact. Again noted is a comminuted fracture of the distal tibia. HS:Y
--- NOTE | 2025-02-01 20:44 | DVH ---
CLINICAL INDICATION: pain fall off ladder TECHNIQUE: 4 radiographic views of the femur were obtained. Comparison: None FINDINGS/IMPRESSION: 4 images of the left femur No fracture or dislocation HS:Y
--- NOTE | 2025-02-01 20:47 | DVH ---
CHEST RADIOGRAPH Indication: pain fall off ladder Technique: Single frontal view of the chest was obtained Comparison: XY CHEST PORTABLE on DOS: 11/30/24, XY CHEST PORTABLE on DOS: 05/14/24 FINDINGS: Lines and Tubes: None Lungs: No focal consolidation. Pleura: No effusion. No pneumothorax. Cardiomediastinal contours: Unremarkable Bones: No acute osseous abnormality. IMPRESSION: 1. No acute cardiopulmonary disease. HS:Y
[2025-02-01] MEDS: ONDANSETRON HCL 4 MG/2 ML VIAL IV ONE (21:09)
[2025-02-01] MEDS: MORPHINE SULFATE 4 MG/ML SYR/VIAL IV ONE (21:09)
[2025-02-01] MEDS ORDERED: DOCUSATE SOD 100 MG CAP PO PRN (22:30)
[2025-02-01] MEDS ORDERED: DEXTROSE (50%) 50ML SYRG IV PRN (22:30)
[2025-02-01] MEDS: FOLIC ACID 1 MG in D5W 5% 50 ML INJ ONE (22:30)
[2025-02-01] MEDS ORDERED: ACETAMINOPHEN 325 MG TAB PO PRN (22:30)
[2025-02-01] MEDS ORDERED: MORPHINE SULFATE INJ 2 MG/ml SYRG IV PRN (22:30)
[2025-02-01] MEDS ORDERED: NITROGLYCERIN 0.4 MG SL TAB SL PRN (22:30)
--- NOTE | 2025-02-01 22:43 | DVHHP2 ---
History of Present Illness Reason for Visit: Left tib fib fracture History of Present Illness The patient is a 34-year-old male with past medical history of diabetes mellitus, hypertension, hyperlipidemia, and schizophrenia who presented to [facility] ED with complaint of lower extremity pain. Patient reports that he jumped off a ladder earlier today and landed on his left lower extremity with sustained lower leg and left ankle pain. Patient was seen and evaluated in the ED, laboratory data shows WBC 12.3, platelets 162, sodium 134, potassium 3.3, BUN 5, creatinine 0.85, GFR 115, glucose 180, calcium 9.2, AST 132, ALT 148, serum alcohol 80.2, blood pressure 116/65, heart rate 83, temperature 97.9 F, O2 saturation 96% on room air. X-ray of the left tibia and fibula revealing mildly displaced comminuted distal tibial fracture which is intra-articular and extends into the ankle mortise tibiotalar joint. Please see medication orders section in the computer. On my assessment, patient denied chest pain, no headache, dizziness, no head trauma, no loss of consciousness, no shortness of breaths, no nausea, no vomiting, no fever, no chills. Patient was admitted for further evaluation and medical management. Past Medical History DM, High Lipids, HTN, Schizophrenia Past Surgical History Denies all surgeries Family History Reviewed, noncontributory to the management of this case. Past Social History Patient lives at home, smokes cigarettes, drinks alcohol heavily, uses cocaine, marijuana, methamphetamine. Review of Systems Constitutional: No: Fever, Chills, Sweats, Weakness, Malaise, Other Eyes: No: Pain, Vision change, Conjunctivae inflammation, Eyelid inflammation, Other, Redness ENT: No: Ear pain, Ear discharge, Nose pain, Nose discharge, Nose congestion, Mouth pain, Mouth swelling, Throat pain, Throat swelling, Other Respiratory: No: Cough, Dry, Shortness of breath, SOB with excertion, Wheezing, Hemoptysis, Pleuritic Pain, Sputum, Wheezing, Other Cardiovascular: No: Chest Pain, Palpitations, Orthopnea, Paroxysmal Noc. Dyspnea, Edema, Lt Headedness, Other Gastrointestinal: No: Nausea, Vomiting, Abdominal Pain, Diarrhea, Constipation, Melena, Hematochezia, Other Genitourinary: No Dysuria, No Frequency, No Incontinence, No Hematuria, No Retention, No Other Musculoskeletal: other (Left ankle pain.); No: neck pain, shoulder pain, arm pain, back pain, hand pain, leg pain, foot pain Skin: No: Rash, Lesions, Jaundice, Bruising, Other Neurological: No: Weakness, Numbness, Incoordination, Change in speech, Confusion, Seizures, Other Allergies: Coded Allergies: NO KNOWN ALLERGIES (Unverified , 11/30/24) Medications Current Medications Medications Dose Ordered Sig/Antonia Route Start Time Stop Time Status Last Admin Dose Admin Ceftriaxone Sodium 50 ml @ 100 mls/hr DAILY@09 IV 02/02/25 09:00 UNV Thiamine HCl 100 mg DAILY IV 02/02/25 10:00 UNV Folic Acid 1 mg/ Dextrose 50.2 ml @ 200.8 mls/ hr DAILY INJ 02/02/25 10:00 UNV Exam Vital Signs Vital Signs Date Time Temp Pulse Resp B/P (MAP) Pulse Ox O2 Delivery O2 Flow Rate FiO2 02/01/25 22:00 83 16 116/65 (82) 97 02/01/25 19:30 97.9 97.9 02/01/25 19:30 Room Air* 0 21 General Appearance: Alert, Oriented X3, Cooperative, No acute distress HEENT: Atraumatic, PERRLA, EOMI, Mucous membr. moist/pink Respiratory: Normal air movement Cardiovascular: Regular rate, Normal S1, Normal S2, No murmurs Abdominal: Normal bowel sounds, Soft, No tenderness, No hepatospenomegaly, No masses Extremities: No clubbing, No cyanosis, No edema, Normal pulses, Other (Left ankle pain/swelling) Skin: No rashes, No breakdown, No significant lesion Neuro: Normal speech, Normal tone, Sensation intact, Cranial nerves 3-12 NL, Reflexes 2+, Other (Unsteady gait) Psych/Mental Status: Mental status NL, Mood NL Labs/Xrays Labs Test 02/01/25 19:05 Range/Units White Blood Count 12.3 H 4.4-10.8 10^3/uL Red Blood Count 4.87 4.5-5.90 10^6/uL Hemoglobin 16.0 13.5-17.5 g/dL Hematocrit 44.9 41.0-53.0 % Mean Corpuscular Volume 92.2 80.0-100.0 fL Mean Corpuscular Hemoglobin 32.8 H 28.0-32.0 pg Mean Corpuscular Hemoglobin Concent 35.6 32.0-36.0 g/dL Red Cell Distribution Width 13.1 11.8-14.3 % Platelet Count 162 140-450 10^3/uL Mean Platelet Volume 8.1 6.9-10.8 fL Neutrophils (%) (Auto) 77.2 37.0-80.0 % Lymphocytes (%) (Auto) 14.5 10.0-50.0 % Monocytes (%) (Auto) 6.9 0.0-12.0 % Eosinophils (%) (Auto) 0.9 0.0-7.0 % Basophils (%) (Auto) 0.5 0.0-2.0 % Neutrophils # (Auto) 9.5 H 1.6-8.6 10 ^3/uL Lymphocytes # (Auto) 1.8 0.4-5.4 10 ^3/uL Monocytes # (Auto) 0.9 0-1.3 10 ^3/uL Eosinophils # (Auto) 0.1 0-0.8 10 ^3/uL Basophils # (Auto) 0.1 0-0.2 10 ^3/uL Nucleated Red Blood Cells 0.1 % Prothrombin Time 11.3 9.3-11.8 sec Prothrombin Time INR 1.07 0.9-1.15 Activated Partial Thromboplast Time 29.3 24.5-34.5 SEC Sodium Level 134 L 136-145 mmol/L Potassium Level 3.3 L 3.5-5.1 mmol/L Chloride Level 99 98-107 mmol/L Carbon Dioxide Level 20 20-31 mmol/L Anion Gap 15 5-15 Blood Urea Nitrogen 5 L 9-23 mg/dL Creatinine 0.85 0.700-1.30 mg/dL Glomerular Filtration Rate Calc 115 >90 mL/min BUN/Creatinine Ratio 5.9 L 10.0-20.0 Serum Glucose 180 H 74-106 mg/dL Calcium Level 9.2 8.7-10.4 mg/dL Total Bilirubin 0.7 0.2-1.0 mg/dL Aspartate Amino Transferase (AST) 132 H 13-40 U/L Alanine Aminotransferase (ALT) 148 H 7-40 U/L Alkaline Phosphatase 95 46-116 U/L Total Protein 7.6 5.7-8.2 g/dL Albumin 4.5 3.2-4.8 g/dL Plasma/Serum Blood Alcohol 80.2 H <10 mg/dL PATIENT: ARUN LANDAVERDE ACCT: [id number] UNIT: [id number] : 1990 LOC: ER ROOM / BED: / AGE / SEX: 34 / M ADM STATUS: REG ER SERVICE 1823 ORDERING PHYSICIAN: RADHA GREEN MD PROCEDURE(s): LTBFB - L TIB FIB XRAY REASON: pain fall off ladder ORDER NUMBER(s): [id number], ACCESSION NUMBER(s): [id number] CLINICAL INDICATION: pain fall off ladder TECHNIQUE: 2 radiographic views of the tibial fibula were obtained. Comparison: None FINDINGS/IMPRESSION: Mildly displaced comminuted distal tibial fracture which is intra-articular and extends into the ankle mortise tibiotalar joint. ORDERING PHYSICIAN: RADHA GREEN MD PROCEDURE(s): PELVS - PELVIS AP REASON: pain fall off ladder ORDER NUMBER(s): [id number], ACCESSION NUMBER(s): [id number] CLINICAL INDICATION: pain fall off ladder TECHNIQUE: 1 radiographic views of the pelvis were obtained. Comparison: None FINDINGS/IMPRESSION: Fractures or dislocations. Superior and inferior pubic rami appear intact bilaterally. ORDERING PHYSICIAN: RADHA GREEN MD PROCEDURE(s): LFOOT - L FOOT 3 VIEW XRAY REASON: pain fall off ladder ORDER NUMBER(s): [id number], ACCESSION NUMBER(s): [id number] CLINICAL INDICATION: pain fall off ladder TECHNIQUE: 3 radiographic views of the foot were obtained. Comparison: None FINDINGS/IMPRESSION: Bony structures of the left foot on in normal alignment and intact. Again noted is a comminuted fracture of the distal tibia. ORDERING PHYSICIAN: RADHA GREEN MD PROCEDURE(s): LFEM - L FEMUR XRAY REASON: pain fall off ladder ORDER NUMBER(s): [id number], ACCESSION NUMBER(s): [id number] CLINICAL INDICATION: pain fall off ladder TECHNIQUE: 4 radiographic views of the femur were obtained. Comparison: None FINDINGS/IMPRESSION: 4 images of the left femur No fracture or dislocation ORDERING PHYSICIAN: RADHA GREEN MD PROCEDURE(s): CXR1 - CHEST XRAY 1 VIEW REASON: pain fall off ladder ORDER NUMBER(s): [id number], ACCESSION NUMBER(s): [id number] CHEST RADIOGRAPH Indication: pain fall off ladder Technique: Single frontal view of the chest was obtained Comparison: XY CHEST PORTABLE on DOS: 11/30/24, XY CHEST PORTABLE on DOS: 05/14/24 FINDINGS: Lines and Tubes: None Lungs: No focal consolidation. Pleura: No effusion. No pneumothorax. Cardiomediastinal contours: Unremarkable Bones: No acute osseous abnormality. IMPRESSION: 1. No acute cardiopulmonary disease. SEPSIS Sepsis Screen Date sepsis recognized/suspect: Feb 01, 2025 Time Sepsis recognized/suspect: 1929 Recent Procedure: No On Antibiotic Therapy: No Respiratory Rate >20: No Heart Rate >90: No Temp<36 C (96.8 F) or >38.3 C: No SBP <90 or MAP <65 mmHG: No New Acute Mental Status Change: No Is the patient on CPAP, BIPAP,: No Physician Orders Electrocardigram (02/01/25 18:23) Chest Xray 1 View (02/01/25 18:23) Pelvis Ap (02/01/25 18:23) L Femur Xray (02/01/25 18:23) L Tib Fib Xray (02/01/25 18:23) L Foot 3 View Xray (02/01/25 18:23) Splints (02/01/25 ) * Orthopedic Consult (02/01/25 20:20) Consistent Carb(Ccho)Diabetes (02/02/25 Breakfast) Potassium Er Tablet (Klor-Con Tablet) (02/01/25 22:30) Ceftriaxone Ivpb Rocephin (02/02/25 09:00) Ceftriaxone Ivpb Rocephin (02/01/25 22:30) Thiamine Inj (02/01/25 22:30) Thiamine Inj (02/02/25 10:00) Folic Acid Ivpb (02/02/25 10:00) Folic Acid Ivpb (02/01/25 22:30) Glucose Blood (Accu-Chek Comfort Curve T (02/02/25 07:00) Bedtime Insulin Scale (02/02/25 22:00) Moderate Insulin Ss (02/02/25 07:00) Dextrose 50% Syringe (02/01/25 22:30) Admit (02/01/25 22:21) Allergies (02/01/25 22:21) Code Status (02/01/25 22:21) 0.9% Ns 1000 Ml (02/01/25 22:30) Oxygen Per Hour (02/01/25 22:21) Hydrocodone-Acet 5/325mg Tab (Briggs 5/32 (02/01/25 22:30) Ondansetron Hcl (Zofran) (02/01/25 22:30) Docusate Sodium Capsule (Colace Capsule) (02/01/25 22:30) Enoxaparin Sodium (Lovenox) (02/02/25 10:00) Multiple Vitamin Tablet (Mvi Tab) (02/02/25 10:00) Fall Risk Precautions In Place QSHIFT (02/01/25 22:21) Complete Blood Count (02/02/25 04:00) Comprehensive Metabolic Panel (02/02/25 04:00) Condition: Serious (02/01/25 22:21) Acetaminophen Tablet (Tylenol Tablet) (02/01/25 22:30) Maintain Bed Rest (02/01/25 22:21) Morphine Sulfate Injection (02/01/25 22:30) Nitroglycerin Sublingual (Ntrostat Subli (02/01/25 22:30) Morphine Sulfate Injection (02/01/25 22:30) Stat Ekg For Chest Pain (02/01/25 22:21) Notify Md Of Changes From Base (02/01/25 22:21) Housemaid 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 (02/01/25 22:21) Emergency Dysrhythmia Protocol (02/01/25 22:21) Rhythm Strips Once Every Shift (02/01/25 22:21) Oxygen By Nasal Cannula (02/01/25 22:21) Vital Signs Date Time Temp Pulse Resp B/P (MAP) Pulse Ox O2 Delivery O2 Flow Rate FiO2 02/01/25 22:00 83 16 116/65 (82) 97 02/01/25 21:39 83 16 116/65 02/01/25 21:09 95 18 116/46 02/01/25 19:30 97.9 93 15 108/62 (77) 96 97.9 02/01/25 19:30 Room Air* 0 21 02/01/25 18:01 98.9 84 18 123/69 (87) 98 98.9 02/01/25 18:01 84 18 98 Room Air* 0 21 02/01/25 17:30 98.4 99 13 136/89 97 98.4 Laboratory Tests Test 02/01/25 19:05 White Blood Count 12.3 10^3/uL (4.4-10.8) H Medications Medications Dose Ordered Sig/Antonia Route Start Time Stop Time Status Last Admin Dose Admin Ketorolac Tromethamine 15 mg ONCE ONCE IV 02/01/25 18:15 02/01/25 18:16 DC 02/01/25 18:22 15 MG Morphine Sulfate 4 mg ONCE ONCE IV 02/01/25 21:00 02/01/25 21:01 DC 02/01/25 21:09 4 MG Ondansetron HCl 4 mg ONCE ONCE IV 02/01/25 21:00 02/01/25 21:01 DC 02/01/25 21:09 4 MG Assessment/Plan Assessment/Plan Fracture of the left tibia and fibula Electrolyte imbalance Alcohol intoxication Elevated liver enzymes Leukocytosis, unspecified Plan 1. Admit to telemetry unit 2. Breathing treatment 3. Pain control management 4. IV antibiotic management 5. Management of fluids and electrolytes 6. Consultation for orthopedic 7. Diagnostic test tibia/fibula x-ray 8. DVT prophylaxis-on Lovenox 9. Repeat labs CBC, CMP in a.m. 10. Home medication reviewed and reconciled 11. Continue with current medical management 12. Treatment plan discussed with patient and RN. Patient verbalized understanding. Plan discussed with: Patient, Other (RN) My Orders Orders - ROBI HERNANDEZ DNP Procedure Category Date Status Time Consistent DIET 02/02/25 Transmitted Carb(Ccho)Diabetes Breakfast Potassium Er Tablet PHA 02/01/25 Transmitted (Klor-Con Tablet) 22:30 Ceftriaxone Ivpb PHA 02/02/25 Transmitted Rocephin 09:00 Ceftriaxone Ivpb PHA 02/01/25 Transmitted Rocephin 22:30 Thiamine Inj PHA 02/01/25 Transmitted 22:30 Thiamine Inj PHA 02/02/25 Transmitted 10:00 Folic Acid Ivpb PHA 02/02/25 Transmitted 10:00 Folic Acid Ivpb PHA 02/01/25 Transmitted 22:30 Glucose Blood PHA 02/02/25 Transmitted (Accu-Chek Comfort 07:00 Bedtime Insulin Scale PHA 02/02/25 Transmitted 22:00 Moderate Insulin Ss PHA 02/02/25 Transmitted 07:00 Dextrose 50% Syringe PHA 02/01/25 Transmitted 22:30 Admit ADMIT 02/01/25 Transmitted 22:21 Allergies LAVINIA 02/01/25 In Process 22:21 Code Status CODE 02/01/25 Transmitted 22:21 0.9% Ns 1000 Ml PHA 02/01/25 Transmitted 22:30 Oxygen Per Hour RT 02/01/25 Transmitted 22:21 Hydrocodone-Acet PHA 02/01/25 Transmitted 5/325mg Tab (Briggs 22:30 Ondansetron Hcl PHA 02/01/25 Transmitted (Zofran) 22:30 Docusate Sodium PHA 02/01/25 Transmitted Capsule (Colace 22:30 Enoxaparin Sodium PHA 02/02/25 Transmitted (Lovenox) 10:00 Multiple Vitamin PHA 02/02/25 Transmitted Tablet (Mvi Tab) 10:00 Fall Risk Precautions LAVINIA 02/01/[address] 22:21 Complete Blood Count LAB 02/02/25 Verified 04:00 Comprehensive LAB 02/02/25 Verified Metabolic Panel 04:00 Condition: Serious LAVINIA 02/01/25 In Process 22:21 Acetaminophen Tablet PHA 02/01/25 Transmitted (Tylenol Tablet) 22:30 Maintain Bed Rest LAVINIA 02/01/25 In Process 22:21 Morphine Sulfate PHA 02/01/25 Transmitted Injection 22:30 Nitroglycerin PHA 02/01/25 Transmitted Sublingual (Ntrostat 22:30 Morphine Sulfate PHA 02/01/25 Transmitted Injection 22:30 Stat Ekg For Chest LAVINIA 02/01/25 In Process Pain 22:21 Notify Of Changes LAVINIA 02/01/25 In Process From Base 22:21 Housemaid For LAVINIA 02/01/25 In Process 24 Hours 22:21 Emergency Dysrhythmia LAVINIA 02/01/25 In Process Protocol 22:21 Rhythm Strips Once LAVINIA 02/01/25 In Process Every Shift 22:21 Oxygen By Nasal RT 02/01/25 Transmitted Cannula 22:21 Problem List: (1) Fracture of left tibia and fibula (2) Electrolyte imbalance (3) Alcohol intoxication (4) Elevated liver enzymes (5) Leukocytosis, unspecified Date of Service: Feb 01, 2025 Billing Provider: ROBI HERNANDEZ DNP Common Visit Codes: [id number] INP/OBS CARE (HIGH) ROBI HERNANDEZ DNP Feb 01, 2025 22:43
[2025-02-02] MEDS: POTASSIUM CHL 20 Meq TABLET PO ONE (00:14)
[2025-02-02] MEDS: THIAMINE 100mg/ml INJ (200mg/2ml VIAL) IV ONE (00:14)
[2025-02-02] MEDS: SODIUM CHLORIDE 0.9% 1,000 ML IV SCH (02:10)
[2025-02-02] MEDS: ONDANSETRON HCL 4 MG/2 ML VIAL IV PRN (03:35)
[2025-02-02] MEDS: MORPHINE SULFATE INJ 2 MG/ml SYRG IV PRN (03:36)
[2025-02-02] MEDS: MORPHINE SULFATE 4 MG/ML SYR/VIAL ONE ×2 (03:57→08:47)
[2025-02-02 04:38] LABS: Alkaline Phosphatase 93 U/L (46-116); Anion Gap 13 (5-15); Calcium 8.9 mg/dL (8.7-10.4); Carbon Dioxide 21 mmol/L (20-31); Chloride 102 mmol/L (98-107); Potassium 3.9 mmol/L (3.5-5.1); Total Protein 7.3 g/dL (5.7-8.2)
[2025-02-02 04:39] LABS: Albumin 4.3 g/dL (3.2-4.8); Bilirubin, Total 1.1 mg/dL (0.2-1.0)
[2025-02-02 04:49] LABS: Alanine Aminotransferase 129 U/L (7-40); BUN/Creatinine Ratio 6.3 (10.0-20.0); Blood Urea Nitrogen < 5 mg/dL (9-23); Glucose 192 mg/dL (74-106); Sodium 136 mmol/L (136-145)
[2025-02-02] MEDS: HYDROcodone-ACET 5/325MG TAB PO PRN (05:06)
[2025-02-02 05:52] LABS: Hematocrit 43.7 % (41.0-53.0); Hemoglobin 15.7 g/dL (13.5-17.5); Mean Corpuscular Hemoglobin 33.2 pg (28.0-32.0); Mean Corpuscular Volume 92.5 fL (80.0-100.0); Nucleated Red Blood Cells % 0.2 %
[2025-02-02] MEDS: NICOTINE 14 MG/24HR TOPICAL PATCH TD ONE ×2 (06:09→09:54)
[2025-02-02] MEDS: ACCU-CHEK COMFORT CURVE STRIP VI SCH (06:42)
[2025-02-02] MEDS: InsuLIN REG 1unit/0.01ml Soln (100units/ml) SC SCH ×2 (06:42→22:03)
[2025-02-02 07:30] VITALS: PULSE 100; RESP 16; O2SAT 97
[2025-02-02] MEDS ORDERED: MORPHINE SULFATE 4 MG/ML SYR/VIAL IV PRN (09:15)
[2025-02-02] MEDS ORDERED: NICOTINE 14 MG/24HR TOPICAL PATCH TD SCH (10:00)
[2025-02-02] MEDS: MULTIPLE VITAMIN TAB PO SCH (10:15)
[2025-02-02] MEDS: ENOXAPARIN SOD 40 MG/0.4 ML SYRINGE SC SCH (10:15)
[2025-02-02] MEDS: THIAMINE 100mg/ml INJ (200mg/2ml VIAL) IV SCH (10:15)
[2025-02-02] MEDS: FOLIC ACID 1 MG in D5W 5% 50 ML INJ SCH (10:19)
--- NOTE | 2025-02-02 14:05 | DVHPN2 ---
Reviewed: Care Plan, H&P, Labs, Medications, Previous Orders, Radiology Changes from previous H/P or p: No Changes Eyes: No Pain, No Vision change, No Conjunctivae inflammation, No Eyelid inflammation, No Other, No Redness ENT: No Ear pain, No Ear discharge, No Nose pain, No Nose discharge, No Nose congestion, No Mouth pain, No Mouth swelling, No Throat pain, No Throat swelling, No Other Cardiovascular: No Chest Pain, No Palpitations, No Orthopnea, No Paroxysmal Noc. Dyspnea, No Edema, No Lt Headedness, No Other Respiratory: No Cough, No Dry, No Shortness of breath, No SOB with excertion, No Wheezing, No Hemoptysis, No Pleuritic Pain, No Sputum, No Other Gastrointestinal: No Nausea, No Vomiting, No Abdominal Pain, No Diarrhea, No Constipation, No Melena, No Hematochezia, No Other Genitourinary: No Dysuria, No Frequency, No Incontinence, No Hematuria, No Retention, No Other Musculoskeletal: other (Left ankle pain.); No neck pain, No shoulder pain, No arm pain, No back pain, No hand pain, No leg pain, No foot pain Skin: No Rash, No Lesions, No Jaundice, No Bruising, No Other Objective Vitals Vital Signs Date Time Temp Pulse Resp B/P (MAP) Pulse Ox O2 Delivery O2 Flow Rate FiO2 02/02/25 11:36 88 17 125/68 (87) 96 02/02/25 07:30 Room Air* 0 21 02/02/25 07:30 98.3 98.3 Intake/Output Intake and Output 02/02/25 07:00 Intake Total 340 ml Output Total 500 ml Balance -160 ml Intake IV Total 340 ml Output Urine Total 500 ml Medications Current Medications Medications Dose Ordered Sig/Antonia Route Start Time Stop Time Status Last Admin Dose Admin Ceftriaxone Sodium 50 ml @ 100 mls/hr DAILY@2200 IV 02/02/25 22:00 Thiamine HCl 100 mg DAILY IV 02/02/25 10:00 02/02/25 10:15 100 MG Folic Acid 1 mg/ Dextrose 50.2 ml @ 200.8 mls/ hr DAILY INJ 02/02/25 10:00 02/02/25 10:19 200.8 MLS/HR Diagnostic Test (Pha) 1 strip ACHS 02/02/25 07:00 02/02/25 11:20 1 STRIP Insulin Human Regular HS SC 02/02/25 22:00 Insulin Human Regular AC SC 02/02/25 07:00 02/02/25 11:21 6 UNITS Dextrose 50 ml UD PRN IV 02/01/25 22:30 Sodium Chloride 1,000 ml @ 60 mls/hr [id number] IV 02/01/25 22:30 02/02/25 02:10 60 MLS/HR Acetaminophen/ Hydrocodone Bitart 1 tab Q4HP PRN PO 02/01/25 22:30 02/02/25 11:15 1 TAB Ondansetron HCl 4 mg Q4HP PRN IV 02/01/25 22:30 02/02/25 08:47 4 MG Docusate Sodium 100 mg BIDPRN PRN PO 02/01/25 22:30 Enoxaparin Sodium 40 mg DAILY SC 02/02/25 10:00 02/02/25 10:15 40 MG Multivitamins 1 tab DAILY PO 02/02/25 10:00 02/02/25 10:15 1 TAB Acetaminophen 650 mg Q6HP PRN PO 02/01/25 22:30 Nitroglycerin 0.4 mg Q5MINP PRN SL 02/01/25 22:30 Nicotine 1 patch DAILY TD 02/03/25 10:00 Morphine Sulfate 2 mg Q4HPRN PRN IV 02/02/25 09:15 Morphine Sulfate 2 mg Q30M PRN IV 02/02/25 09:15 Laboratory Results Laboratory Tests 02/02/25 03:38 Chemistry Test 02/01/25 19:05 02/02/25 03:38 Albumin 4.5 g/dL (3.2-4.8) 4.3 g/dL (3.2-4.8) Calcium Level 9.2 mg/dL (8.7-10.4) 8.9 mg/dL (8.7-10.4) Total Protein 7.6 g/dL (5.7-8.2) 7.3 g/dL (5.7-8.2) Coagulation Test 02/01/25 19:05 Prothrombin Time 11.3 sec (9.3-11.8) Prothrombin Time INR 1.07 (0.9-1.15) Activated Partial Thromboplast Time 29.3 SEC (24.5-34.5) LFT Test 02/01/25 19:05 02/02/25 03:38 Alanine Aminotransferase (ALT) 148 U/L (7-40) H 129 U/L (7-40) H Alkaline Phosphatase 95 U/L (46-116) 93 U/L (46-116) Aspartate Amino Transferase (AST) 132 U/L (13-40) H 100 U/L (13-40) H Total Bilirubin 0.7 mg/dL (0.2-1.0) 1.1 mg/dL (0.2-1.0) H Labs and/or images reviewed: Labs reviewed by me, Image(s) reviewed by me Assessment/Plan Assessment/Plan Acute distal left hip fracture: Orthopedic consult pain medications Mechanical fall from ladder Diabetes Hypercholesterolemia Hypertension Schizophrenia Chronic alcohol abuse Chronic smoking Marijuana abuse Time spent 45 minutes Patient is full code Plan discussed with: Patient Date of Service: Feb 02, 2025 Billing Provider: BALBIR ABDI MD Common Visit Codes: [id number] INP/OBS CARE(HIGH) Secondary Visit Codes: [id number] CARE PLAN 30 MINUTES BALBIR ABDI MD Feb 02, 2025 14:05
[2025-02-02] MEDS: MORPHINE SULFATE 4 MG/ML SYR/VIAL IV PRN (15:00)
[2025-02-02 16:23] VITALS: BP 143/91; PULSE 68; PULSE 79; RESP 16; RESP 20; TEMP 98.3; O2SAT 96; O2SAT 99
[2025-02-02] MEDS ORDERED: METF-370 PO (16:58)
[2025-02-02] MEDS ORDERED: VENL150C58 PO (16:59)
[2025-02-02 17:00] VITALS: BP_SYST 129; BP_SYST 143; BP_DIAS 91; PULSE 70; PULSE 96; RESP 18; RESP 20; TEMP 98.3; TEMP 98.9; O2SAT 96; O2SAT 99
[2025-02-02] MEDS ORDERED: ATOR20TA50 PO (17:00)
[2025-02-02] MEDS ORDERED: ZIPR40CA23 PO (17:01)
[2025-02-02 18:33] LABS: INR 1.03 (0.9-1.15); Prothrombin Time 10.9 sec (9.3-11.8)
[2025-02-02 20:00] VITALS: PULSE 79
[2025-02-02 21:00] VITALS: BP 116/81; PULSE 82; RESP 20; TEMP 98.5; O2SAT 94
[2025-02-02] MEDS: HYDROmorphone HCL 2 MG/ML VL/or syr IV PRN (22:04)
[2025-02-02] MEDS: CYCLOBENZAPRINE HCL 10 MG TAB PO PRN (23:55)
[2025-02-03] VITALS (7 sets, daily range): BP systolic 130–148; BP diastolic 80–94; PULSE 65–102; RESP 18–21; TEMP 97.8–98.8; O2SAT 95–97
--- NOTE | 2025-02-03 08:15 | DVHPN2 ---
Reviewed: Care Plan, H&P, Labs, Medications, Previous Orders, Radiology Changes from previous H/P or p: No Changes Eyes: No Pain, No Vision change, No Conjunctivae inflammation, No Eyelid inflammation, No Other, No Redness ENT: No Ear pain, No Ear discharge, No Nose pain, No Nose discharge, No Nose congestion, No Mouth pain, No Mouth swelling, No Throat pain, No Throat swelling, No Other Cardiovascular: No Chest Pain, No Palpitations, No Orthopnea, No Paroxysmal Noc. Dyspnea, No Edema, No Lt Headedness, No Other Respiratory: No Cough, No Dry, No Shortness of breath, No SOB with excertion, No Wheezing, No Hemoptysis, No Pleuritic Pain, No Sputum, No Other Gastrointestinal: No Nausea, No Vomiting, No Abdominal Pain, No Diarrhea, No Constipation, No Melena, No Hematochezia, No Other Genitourinary: No Dysuria, No Frequency, No Incontinence, No Hematuria, No Retention, No Other Musculoskeletal: other (Left ankle pain.); No neck pain, No shoulder pain, No arm pain, No back pain, No hand pain, No leg pain, No foot pain Skin: No Rash, No Lesions, No Jaundice, No Bruising, No Other Objective Vitals Vital Signs Date Time Temp Pulse Resp B/P (MAP) Pulse Ox O2 Delivery O2 Flow Rate FiO2 02/03/25 05:18 65 19 148/80 02/03/25 05:00 98.0 95 98.0 02/02/25 20:00 Room Air* 0 21 Intake/Output Intake and Output 02/03/25 07:00 Intake Total 1540.2 ml Output Total 1700 ml Balance -159.8 ml Intake Oral 840 ml IV Total 700.2 ml Output Urine Total 1700 ml # Voids 1 Medications Current Medications Medications Dose Ordered Sig/Antonia Route Start Time Stop Time Status Last Admin Dose Admin Ceftriaxone Sodium 50 ml @ 100 mls/hr DAILY@2200 IV 02/02/25 22:00 02/02/25 22:03 100 MLS/HR Thiamine HCl 100 mg DAILY IV 02/02/25 10:00 02/02/25 10:15 100 MG Folic Acid 1 mg/ Dextrose 50.2 ml @ 200.8 mls/ hr DAILY INJ 02/02/25 10:00 02/02/25 10:19 200.8 MLS/HR Diagnostic Test (Pha) 1 strip ACHS 02/02/25 07:00 02/03/25 06:15 1 STRIP Insulin Human Regular HS SC 02/02/25 22:00 02/02/25 22:03 3 UNITS Insulin Human Regular AC SC 02/02/25 07:00 02/03/25 06:15 6 UNITS Dextrose 50 ml UD PRN IV 02/01/25 22:30 Sodium Chloride 1,000 ml @ 60 mls/hr [id number] IV 02/01/25 22:30 02/02/25 02:10 60 MLS/HR Acetaminophen/ Hydrocodone Bitart 1 tab Q4HP PRN PO 02/01/25 22:30 02/03/25 03:18 1 TAB Ondansetron HCl 4 mg Q4HP PRN IV 02/01/25 22:30 02/02/25 08:47 4 MG Docusate Sodium 100 mg BIDPRN PRN PO 02/01/25 22:30 Enoxaparin Sodium 40 mg DAILY SC 02/02/25 10:00 02/02/25 10:15 40 MG Multivitamins 1 tab DAILY PO 02/02/25 10:00 02/02/25 10:15 1 TAB Acetaminophen 650 mg Q6HP PRN PO 02/01/25 22:30 Nitroglycerin 0.4 mg Q5MINP PRN SL 02/01/25 22:30 Nicotine 1 patch DAILY TD 02/03/25 10:00 Morphine Sulfate 2 mg Q30M PRN IV 02/02/25 09:15 Hydromorphone HCl 1 mg Q3HPRN PRN IV 02/02/25 19:00 02/03/25 04:48 1 MG Cyclobenzaprine HCl 10 mg Q8HPRN PRN PO 02/02/25 19:00 02/02/25 23:55 10 MG Laboratory Results Laboratory Tests 02/02/25 03:38 Coagulation Test 02/02/25 17:59 Prothrombin Time 10.9 sec (9.3-11.8) Prothrombin Time INR 1.03 (0.9-1.15) HgA1c, TSH Test 02/02/25 17:59 Hemoglobin A1c 8.6 % A1C (<5.7) H Labs and/or images reviewed: Labs reviewed by me, Image(s) reviewed by me Assessment/Plan Assessment/Plan Acute distal left tib fracture: Orthopedic consult by Dr. Greenfield appreciated, planning for ORIF on 02/05/2025 Mechanical fall from ladder Diabetes Hypercholesterolemia Hypertension Schizophrenia: Resume home medications Chronic alcohol abuse Chronic smoking Marijuana abuse Time spent 45 minutes Patient is full code Plan discussed with: Patient Date of Service: Feb 03, 2025 Billing Provider: BALBIR ABDI MD Common Visit Codes: [id number] INP/OBS CARE(HIGH) BALBIR ABDI MD Feb 03, 2025 08:15
[2025-02-03] MEDS: NICOTINE 14 MG/24HR TOPICAL PATCH TD SCH (09:11)
--- NOTE | 2025-02-03 10:47 | DVH ---
CLINICAL HISTORY: fracture TECHNIQUE: CT of the left lower extremity was performed without intravenous contrast. This exam was p erformed according to our departmental dose optimization program. Up-to-date CT equipment and radiati on dose reduction techniques are utilized as appropriate. 3D reformatted images of the ankle without obtained CTDI 7.75 mGy DLP 229.35 mGy.cm COMPARISON: None FINDINGS: There is a comminuted fracture through the distal tibia extending to the joint surface. Fracture exte nds superiorly as spiral nondisplaced fracture component involving the distal tibial shaft and metaph ysis. The talus is intact. The distal fibula is intact. The tibiotalar joint is nondisplaced. Extensive soft tissue swelling is present IMPRESSION: 1. Study done for pretreatment planning showing comminuted fracture of the distal tibia as described
[2025-02-03] MEDS: ZIPRASIDONE 40 MG PO SCH (21:07)
[2025-02-03] MEDS: ATORVASTATIN 20 MG TAB PO SCH (21:07)
[2025-02-04] VITALS (8 sets, daily range): BP systolic 126–139; BP diastolic 76–89; PULSE 62–94; RESP 17–19; TEMP 98–98.5; O2SAT 95–96
--- NOTE | 2025-02-04 09:13 | DVHPN2 ---
Reviewed: Care Plan, H&P, Labs, Medications, Previous Orders, Radiology Changes from previous H/P or p: No Changes Eyes: No Pain, No Vision change, No Conjunctivae inflammation, No Eyelid inflammation, No Other, No Redness ENT: No Ear pain, No Ear discharge, No Nose pain, No Nose discharge, No Nose congestion, No Mouth pain, No Mouth swelling, No Throat pain, No Throat swelling, No Other Cardiovascular: No Chest Pain, No Palpitations, No Orthopnea, No Paroxysmal Noc. Dyspnea, No Edema, No Lt Headedness, No Other Respiratory: No Cough, No Dry, No Shortness of breath, No SOB with excertion, No Wheezing, No Hemoptysis, No Pleuritic Pain, No Sputum, No Other Gastrointestinal: No Nausea, No Vomiting, No Abdominal Pain, No Diarrhea, No Constipation, No Melena, No Hematochezia, No Other Genitourinary: No Dysuria, No Frequency, No Incontinence, No Hematuria, No Retention, No Other Musculoskeletal: other (Left ankle pain.); No neck pain, No shoulder pain, No arm pain, No back pain, No hand pain, No leg pain, No foot pain Skin: No Rash, No Lesions, No Jaundice, No Bruising, No Other Objective Vitals Vital Signs Date Time Temp Pulse Resp B/P (MAP) Pulse Ox O2 Delivery O2 Flow Rate FiO2 02/04/25 08:55 98.5 82 19 128/83 (98) 96 98.5 02/03/25 20:00 Room Air* 0 21 Intake/Output Intake and Output 02/04/25 07:00 Intake Total 2350 ml Output Total 3000 ml Balance -650 ml Intake Oral 2300 ml IV Total 50 ml Output Urine Total 3000 ml # Bowel Movements 2 Medications Current Medications Medications Dose Ordered Sig/Antonia Route Start Time Stop Time Status Last Admin Dose Admin Ceftriaxone Sodium 50 ml @ 100 mls/hr DAILY@2200 IV 02/02/25 22:00 02/03/25 21:07 100 MLS/HR Thiamine HCl 100 mg DAILY IV 02/02/25 10:02/03/25 09:11 100 MG Folic Acid 1 mg/ Dextrose 50.2 ml @ 200.8 mls/ hr DAILY INJ 02/02/25 10:00 02/03/25 13:03 200.8 MLS/HR Diagnostic Test (Pha) 1 strip ACHS 02/02/25 07:00 02/04/25 06:15 1 STRIP Insulin Human Regular HS SC 02/02/25 22:00 02/03/25 21:10 6 UNITS Insulin Human Regular AC SC 02/02/25 07:00 02/04/25 06:15 6 UNITS Dextrose 50 ml UD PRN IV 02/01/25 22:30 Sodium Chloride 1,000 ml @ 60 mls/hr [id number] IV 02/01/25 22:30 02/03/25 09:12 60 MLS/HR Acetaminophen/ Hydrocodone Bitart 1 tab Q4HP PRN PO 02/01/25 22:30 02/04/25 06:15 1 TAB Ondansetron HCl 4 mg Q4HP PRN IV 02/01/25 22:30 02/02/25 08:47 4 MG Docusate Sodium 100 mg BIDPRN PRN PO 02/01/25 22:30 Enoxaparin Sodium 40 mg DAILY SC 02/02/25 10:00 02/03/25 09:10 40 MG Multivitamins 1 tab DAILY PO 02/02/25 10:00 02/03/25 09:09 1 TAB Acetaminophen 650 mg Q6HP PRN PO 02/01/25 22:30 Nitroglycerin 0.4 mg Q5MINP PRN SL 02/01/25 22:30 Nicotine 1 patch DAILY TD 02/03/25 10:00 02/03/25 09:11 1 PATCH Morphine Sulfate 2 mg Q30M PRN IV 02/02/25 09:15 Hydromorphone HCl 1 mg Q3HPRN PRN IV 02/02/25 19:00 02/04/25 03:44 1 MG Cyclobenzaprine HCl 10 mg Q8HPRN PRN PO 02/02/25 19:00 02/04/25 02:29 10 MG Atorvastatin Calcium 20 mg HS PO 02/03/25 22:00 02/03/25 21:07 20 MG Metformin HCl 500 mg BID PO 02/03/25 22:00 02/03/25 21:07 500 MG Venlafaxine HCl 150 mg DAILY PO 02/04/25 10:00 Patient Own Medication 1 BID PO 02/03/25 22:00 Laboratory Results Laboratory Tests 02/02/25 03:38 Labs and/or images reviewed: Labs reviewed by me, Image(s) reviewed by me Assessment/Plan Assessment/Plan Acute distal left tib fracture: Orthopedic consult by Dr. Greenfield appreciated, planning for ORIF on 02/05/2025 Mechanical fall from ladder Diabetes Hypercholesterolemia Hypertension Schizophrenia: Resume home medications Chronic alcohol abuse Chronic smoking Marijuana abuse Time spent 45 minutes Patient is full code Continue Current management Plan discussed with: Patient My Orders Orders - BALBIR ABDI MD Procedure Category Date Status Time Metformin PHA 02/03/25 In Process Hydrochloride 22:00 Venlafaxine PHA 02/04/25 In Process Hydrochloride 10:00 Patients Own PHA 02/03/25 In Process Medication 22:00 Date of Service: Feb 04, 2025 Billing Provider: BALBIR ABDI MD Common Visit Codes: [id number] INP/OBS CARE(HIGH) BALBIR ABDI MD Feb 04, 2025 09:13
[2025-02-04] MEDS: VENLAFAXINE HCL 37.5MG TABLET PO SCH (09:48)
[2025-02-04 13:58] LABS: Benzodiazephine Screen, Urine Pos (NEGATIVE)
[2025-02-04 13:59] LABS: Opiate Scree,Urine Pos (NEGATIVE)
[2025-02-04 14:03] LABS: Amphetamine Screen, Urine Neg (NEGATIVE); Barbiturate Scree,Urine Neg (NEGATIVE); Cannabinoid Screen, Urine Pos (NEGATIVE); Cocaine Screen, Urine Neg (NEGATIVE); Phencyclidine Screen, Urine Neg (NEGATIVE)
[2025-02-05 05:00] VITALS: BP 120/78; PULSE 72; RESP 18; TEMP 98.3; O2SAT 94
[2025-02-05 08:00] VITALS: PULSE 66; PULSE 80; RESP 18; O2SAT 96
--- NOTE | 2025-02-05 08:23 | DVHPN2 ---
Reviewed: Care Plan, H&P, Labs, Medications, Previous Orders, Radiology Changes from previous H/P or p: No Changes Eyes: No Pain, No Vision change, No Conjunctivae inflammation, No Eyelid inflammation, No Other, No Redness ENT: No Ear pain, No Ear discharge, No Nose pain, No Nose discharge, No Nose congestion, No Mouth pain, No Mouth swelling, No Throat pain, No Throat swelling, No Other Cardiovascular: No Chest Pain, No Palpitations, No Orthopnea, No Paroxysmal Noc. Dyspnea, No Edema, No Lt Headedness, No Other Respiratory: No Cough, No Dry, No Shortness of breath, No SOB with excertion, No Wheezing, No Hemoptysis, No Pleuritic Pain, No Sputum, No Other Gastrointestinal: No Nausea, No Vomiting, No Abdominal Pain, No Diarrhea, No Constipation, No Melena, No Hematochezia, No Other Genitourinary: No Dysuria, No Frequency, No Incontinence, No Hematuria, No Retention, No Other Musculoskeletal: other (Left ankle pain.); No neck pain, No shoulder pain, No arm pain, No back pain, No hand pain, No leg pain, No foot pain Skin: No Rash, No Lesions, No Jaundice, No Bruising, No Other Objective Vitals Vital Signs Date Time Temp Pulse Resp B/P (MAP) Pulse Ox O2 Delivery O2 Flow Rate FiO2 02/05/25 05:00 98.3 72 18 120/78 (92) 94 98.3 02/04/25 20:00 Room Air* 0 21 Intake/Output Intake and Output 02/05/25 07:00 Intake Total 1050 ml Output Total 2400 ml Balance -1350 ml Intake Oral 1000 ml IV Total 50 ml Output Urine Total 2400 ml # Voids 2 # Bowel Movements 1 Medications Current Medications Medications Dose Ordered Sig/Antonia Route Start Time Stop Time Status Last Admin Dose Admin Ceftriaxone Sodium 50 ml @ 100 mls/hr DAILY@2200 IV 02/02/25 22:00 02/04/25 22:29 100 MLS/HR Thiamine HCl 100 mg DAILY IV 02/02/25 10:00 02/04/25 09:39 100 MG Folic Acid 1 mg/ Dextrose 50.2 ml @ 200.8 mls/ hr DAILY INJ 02/02/25 10:00 02/04/25 09:38 200.8 MLS/HR Diagnostic Test (Pha) 1 strip ACHS 02/02/25 07:00 02/05/25 06:09 1 STRIP Insulin Human Regular HS SC 02/02/25 22:00 02/04/25 22:00 6 UNITS Insulin Human Regular AC SC 02/02/25 07:00 02/05/25 06:09 6 UNITS Dextrose 50 ml UD PRN IV 02/01/25 22:30 Sodium Chloride 1,000 ml @ 60 mls/hr [id number] IV 02/01/25 22:30 02/04/25 18:12 60 MLS/HR Acetaminophen/ Hydrocodone Bitart 1 tab Q4HP PRN PO 02/01/25 22:30 02/05/25 03:26 1 TAB Ondansetron HCl 4 mg Q4HP PRN IV 02/01/25 22:30 02/02/25 08:47 4 MG Docusate Sodium 100 mg BIDPRN PRN PO 02/01/25 22:30 Enoxaparin Sodium 40 mg DAILY SC 02/02/25 10:00 02/03/25 09:10 40 MG Multivitamins 1 tab DAILY PO 02/02/25 10:00 02/04/25 09:39 1 TAB Acetaminophen 650 mg Q6HP PRN PO 02/01/25 22:30 Nitroglycerin 0.4 mg Q5MINP PRN SL 02/01/25 22:30 Nicotine 1 patch DAILY TD 02/03/25 10:00 02/04/25 09:41 1 PATCH Morphine Sulfate 2 mg Q30M PRN IV 02/02/25 09:15 Hydromorphone HCl 1 mg Q3HPRN PRN IV 02/02/25 19:00 02/05/25 02:08 1 MG Cyclobenzaprine HCl 10 mg Q8HPRN PRN PO 02/02/25 19:00 02/04/25 02:29 10 MG Atorvastatin Calcium 20 mg HS PO 02/03/25 22:00 02/04/25 22:31 20 MG Metformin HCl 500 mg BID PO 02/03/25 22:00 02/04/25 22:30 500 MG Venlafaxine HCl 150 mg DAILY PO 02/04/25 10:00 02/04/25 09:48 150 MG Patient Own Medication 1 BID PO 02/03/25 22:00 Laboratory Results Laboratory Tests 02/02/25 03:38 Labs and/or images reviewed: Labs reviewed by me, Image(s) reviewed by me Assessment/Plan Assessment/Plan Acute distal left tib fracture: Orthopedic consult by Dr. Jean Pierre [place], planning for ORIF on 02/05/2025 Bilateral pubic rami fracture Mechanical fall from ladder Diabetes Hypercholesterolemia Hypertension Schizophrenia: Resume home medications Chronic alcohol abuse Chronic smoking Marijuana abuse Time spent 45 minutes Patient is full code Continue Current management Plan discussed with: Patient Date of Service: Feb 05, 2025 Billing Provider: BALBIR ABDI MD Common Visit Codes: [id number] INP/OBS CARE(HIGH) BALBIR ABDI MD Feb 05, 2025 08:23
[2025-02-05 08:53] VITALS: BP 138/85; PULSE 85; RESP 17; TEMP 98.1; O2SAT 97
[2025-02-05] MEDS ORDERED: ONDANSETRON HCL 4 MG/2 ML VIAL ONE (10:23)
[2025-02-05] MEDS ORDERED: fentaNYL CITRATE 100 MCG/2 ML VL ONE (10:23)
[2025-02-05] MEDS ORDERED: METOCLOPRAMIDE HCL 5MG/ml INJ 2ml VIAL ONE (10:23)
[2025-02-05] MEDS ORDERED: MIDAZOLAM HCL 2MG/2ML 2ml VIAL (1mg/ml) ONE (10:23)
[2025-02-05] MEDS ORDERED: PROPOFOL 10 MG/ML 20 ML IV ONE (10:24)
--- NOTE | 2025-02-05 10:47 | DVHINCON2 ---
Date of service: Feb 04, 2025 Reason for Consultation Left tibia/fibula fracture History of Present Illness 34 yo M with multiple medical issues sp fall off a ladder and injured his left leg. Immediate pain/swelling/inability to bear weight on left leg. No cp/sob/abd pain/nausea/vomiting. Past Medical History Past Medical History DM, High Lipids, HTN, Schizophrenia Past Surgical History Denies all surgeries Family History Reviewed, noncontributory to the management of this case. Past Social History Patient lives at home, smokes cigarettes, drinks alcohol heavily, uses cocaine, marijuana, methamphetamine. Family History: Patient reports no known family medical history. Allergies: Coded Allergies: NO KNOWN ALLERGIES (Unverified , 11/30/24) Home Meds Reported Medications Ziprasidone HCl (Ziprasidone HCl) 40 Mg Cap, 1 CAP PO BID 02/02/25 Atorvastatin Calcium (ATORVASTATIN CALCIUM) 20 Mg Tab, 1 TAB PO DAILY 02/02/25 Venlafaxine Hcl (Venlafaxine Hcl Er) 150 Mg Cap, 1 CAP PO DAILY 02/02/25 Metformin Hydrochloride (Metformin Hcl) 500 Mg Tab, 1 TAB PO BID 02/02/25 Review of Systems 10 POINT ROS as per HPI Vital Signs Vital Signs Date Time Temp Pulse Resp B/P (MAP) Pulse Ox O2 Delivery O2 Flow Rate FiO2 02/05/25 08:53 98.1 85 17 138/85 (102) 97 98.1 02/04/25 20:00 Room Air* 0 21 Physical Exam NAD Aox3 LLE: +splint in place +ehl/fhl foot wwp calf soft Labs/Diagnostic Data Labs Test 02/05/25 05:33 02/02/25 17:59 02/02/25 13:15 02/02/25 03:38 Range/Units POC Glucose 232 H 70-106 mg/dl Prothrombin Time 10.9 9.3-11.8 sec Prothrombin Time INR 1.03 0.9-1.15 Hemoglobin A1c 8.6 H <5.7 % A1C Urine Opiates Screen Pos NEGATIVE Urine Fentanyl Screen Neg NEGATIVE Urine Barbiturates Screen Neg NEGATIVE Urine Phencyclidine Screen Neg NEGATIVE Urine Amphetamines Screen Neg NEGATIVE Urine Benzodiazepines Screen Pos NEGATIVE Urine Cocaine Screen Neg NEGATIVE Urine Cannabinoids Screen Pos NEGATIVE White Blood Count 9.1 # 4.4-10.8 10^3/uL Red Blood Count 4.73 4.5-5.90 10^6/uL Hemoglobin 15.7 13.5-17.5 g/dL Hematocrit 43.7 41.0-53.0 % Mean Corpuscular Volume 92.5 80.0-100.0 fL Mean Corpuscular Hemoglobin 33.2 H 28.0-32.0 pg Mean Corpuscular Hemoglobin Concent 36.0 32.0-36.0 g/dL Red Cell Distribution Width 12.9 11.8-14.3 % Platelet Count 143 140-450 10^3/uL Mean Platelet Volume 8.5 6.9-10.8 fL Neutrophils (%) (Auto) 70.5 37.0-80.0 % Lymphocytes (%) (Auto) 16.3 10.0-50.0 % Monocytes (%) (Auto) 11.0 0.0-12.0 % Eosinophils (%) (Auto) 1.7 0.0-7.0 % Basophils (%) (Auto) 0.5 0.0-2.0 % Neutrophils # (Auto) 6.4 1.6-8.6 10 ^3/uL Lymphocytes # (Auto) 1.5 0.4-5.4 10 ^3/uL Monocytes # (Auto) 1.0 0-1.3 10 ^3/uL Eosinophils # (Auto) 0.2 0-0.8 10 ^3/uL Basophils # (Auto) 0 0-0.2 10 ^3/uL Nucleated Red Blood Cells 0.2 % Sodium Level 136 136-145 mmol/L Potassium Level 3.9 3.5-5.1 mmol/L Chloride Level 102 98-107 mmol/L Carbon Dioxide Level 21 20-31 mmol/L Anion Gap 13 5-15 Blood Urea Nitrogen < 5 L 9-23 mg/dL Creatinine 0.80 0.700-1.30 mg/dL Glomerular Filtration Rate Calc 118 >90 mL/min BUN/Creatinine Ratio 6.3 L 10.0-20.0 Serum Glucose 192 H 74-106 mg/dL Calcium Level 8.9 8.7-10.4 mg/dL Total Bilirubin 1.1 H 0.2-1.0 mg/dL Aspartate Amino Transferase (AST) 100 H 13-40 U/L Alanine Aminotransferase (ALT) 129 H 7-40 U/L Alkaline Phosphatase 93 46-116 U/L Total Protein 7.3 5.7-8.2 g/dL Albumin 4.3 3.2-4.8 g/dL Test 02/01/25 19:05 Range/Units Activated Partial Thromboplast Time 29.3 24.5-34.5 SEC Plasma/Serum Blood Alcohol 80.2 H <10 mg/dL Plan/Recommendation 34 yo M sp mechanical fall off ladder/hx of IVDA with a comminuted left intra- articular distal tibia fracture/fibula fracture 1. I had a long discussion with patient regarding her condition. Questions for patient answered. Risks benefits options and alternatives reviewed in depth. Risks include but not exclusive to bleeding infection nerve injury hardware failure nonunion malunion chronic pain blood clots cardiac and pulmonary complications amputation and . Patient understands. 2. Plan for left distal tibia external fixator with Dr. Greenfield/Lillian 3. definitive left tibia surgery as outpatient with our orthopedic trauma colleagues - we will set this up as outpatient 4. pain control 5. NWB LLE Plan discussed with: Patient EVELYN GREENFIELD MD Feb 05, 2025 10:47
[2025-02-05] MEDS ORDERED: HYDROmorphone HCL 2 MG/ML VL/or syr ONE (10:48)
[2025-02-05] MEDS ORDERED: LIDOCAINE W/ EPINEPHRINE 1% 20ML VIAL ONE (10:54)
[2025-02-05] MEDS ORDERED: METOCLOPRAMIDE HCL 5MG/ml INJ 2ml VIAL IV PRN (11:45)
[2025-02-05] MEDS ORDERED: HYDROmorphone HCL 2 MG/ML VL/or syr IV PRN (11:45)
[2025-02-05] MEDS: ACETAMINOPHEN IV 1000 MG/100ML (10MG/ML) IV ONE (11:45)
[2025-02-05] MEDS ORDERED: ONDANSETRON HCL 4 MG/2 ML VIAL IV PRN (11:45)
[2025-02-05] MEDS: KETOROLAC TROMETH 30 MG/ML 1ML VIAL IV ONE (11:45)
[2025-02-05] MEDS ORDERED: hydrALAZINE HCL 20 MG/ML VL IV PRN (11:45)
[2025-02-05] MEDS: ceFAZolin 2 GM/D5W50ml 50 ML IV ONE (11:47)
--- NOTE | 2025-02-05 11:57 | DVH ---
C-ARM FLUOROSCOPY: PROCEDURE: ORIF left tibia FLUOROSCOPY TIME: 28.9 sec DAP: 0.53 mgy FINDINGS: Spot intraoperative C arm radiographs demonstrating ORIF left tibia. IMPRESSION: Please refer to surgical report for detailed findings.
[2025-02-05] MEDS: BUPIVACAINE 0.25% INJ 50ML VIAL ONE (13:40)
[2025-02-05] MEDS: ceFAZolin 1GM/50ML 50 ML IV SCH (16:18)
[2025-02-05 17:00] VITALS: BP 143/89; PULSE 91; RESP 17; TEMP 98; O2SAT 97
[2025-02-05 20:00] VITALS: PULSE 101; PULSE 86; O2SAT 96
[2025-02-05 21:00] VITALS: BP 141/84; PULSE 89; RESP 12; TEMP 97.1; O2SAT 98
[2025-02-06] VITALS (8 sets, daily range): BP systolic 119–149; BP diastolic 64–94; PULSE 77–107; RESP 18–20; TEMP 97.4–98.6; O2SAT 95–97
--- NOTE | 2025-02-06 08:23 | DVHPN2 ---
Reviewed: Care Plan, H&P, Labs, Medications, Previous Orders, Radiology Changes from previous H/P or p: No Changes Eyes: No Pain, No Vision change, No Conjunctivae inflammation, No Eyelid inflammation, No Other, No Redness ENT: No Ear pain, No Ear discharge, No Nose pain, No Nose discharge, No Nose congestion, No Mouth pain, No Mouth swelling, No Throat pain, No Throat swelling, No Other Cardiovascular: No Chest Pain, No Palpitations, No Orthopnea, No Paroxysmal Noc. Dyspnea, No Edema, No Lt Headedness, No Other Respiratory: No Cough, No Dry, No Shortness of breath, No SOB with excertion, No Wheezing, No Hemoptysis, No Pleuritic Pain, No Sputum, No Other Gastrointestinal: No Nausea, No Vomiting, No Abdominal Pain, No Diarrhea, No Constipation, No Melena, No Hematochezia, No Other Genitourinary: No Dysuria, No Frequency, No Incontinence, No Hematuria, No Retention, No Other Musculoskeletal: other (Left ankle pain.); No neck pain, No shoulder pain, No arm pain, No back pain, No hand pain, No leg pain, No foot pain Skin: No Rash, No Lesions, No Jaundice, No Bruising, No Other Objective Vitals Vital Signs Date Time Temp Pulse Resp B/P (MAP) Pulse Ox O2 Delivery O2 Flow Rate FiO2 02/06/25 06:40 77 18 118/77 02/06/25 05:00 97.4 97 97.4 02/05/25 20:00 Room Air* 0 21 Intake/Output Intake and Output 02/06/25 07:00 Intake Total 6500 ml Output Total 7300 ml Balance -800 ml Intake Oral 5200 ml IV Total 1300 ml Output Urine Total 7300 ml # Bowel Movements 1 Medications Current Medications Medications Dose Ordered Sig/Antonia Route Start Time Stop Time Status Last Admin Dose Admin Ceftriaxone Sodium 50 ml @ 100 mls/hr DAILY@2200 IV 02/02/25 22:00 02/05/25 22:47 100 MLS/HR Thiamine HCl 100 mg DAILY IV 02/02/25 10:00 02/05/25 13:24 100 MG Folic Acid 1 mg/ Dextrose 50.2 ml @ 200.8 mls/ hr DAILY INJ 02/02/25 10:00 02/04/25 09:38 200.8 MLS/HR Diagnostic Test (Pha) 1 strip ACHS 02/02/25 07:00 02/06/25 06:42 1 STRIP Insulin Human Regular HS SC 02/02/25 22:00 02/05/25 22:43 8 UNITS Insulin Human Regular AC SC 02/02/25 07:00 02/06/25 06:41 12 UNITS Dextrose 50 ml UD PRN IV 02/01/25 22:30 Sodium Chloride 1,000 ml @ 60 mls/hr [id number] IV 02/01/25 22:30 02/06/25 02:13 60 MLS/HR Acetaminophen/ Hydrocodone Bitart 1 tab Q4HP PRN PO 02/01/25 22:30 02/06/25 00:45 1 TAB Ondansetron HCl 4 mg Q4HP PRN IV 02/01/25 22:30 02/02/25 08:47 4 MG Docusate Sodium 100 mg BIDPRN PRN PO 02/01/25 22:30 Enoxaparin Sodium 40 mg DAILY SC 02/02/25 10:00 02/05/25 13:25 40 MG Multivitamins 1 tab DAILY PO 02/02/25 10:00 02/05/25 13:26 1 TAB Acetaminophen 650 mg Q6HP PRN PO 02/01/25 22:30 Nitroglycerin 0.4 mg Q5MINP PRN SL 02/01/25 22:30 Nicotine 1 patch DAILY TD 02/03/25 10:00 02/05/25 13:27 1 PATCH Morphine Sulfate 2 mg Q30M PRN IV 02/02/25 09:15 Hydromorphone HCl 1 mg Q3HPRN PRN IV 02/02/25 19:00 02/06/25 06:40 1 MG Cyclobenzaprine HCl 10 mg Q8HPRN PRN PO 02/02/25 19:00 02/04/25 02:29 10 MG Atorvastatin Calcium 20 mg HS PO 02/03/25 22:00 02/05/25 22:46 20 MG Metformin HCl 500 mg BID PO 02/03/25 22:00 02/05/25 22:46 500 MG Venlafaxine HCl 150 mg DAILY PO 02/04/25 10:00 02/05/25 13:26 150 MG Patient Own Medication 1 BID PO 02/03/25 22:00 02/05/25 22:48 1 Cefazolin Sodium 50 ml @ 100 mls/hr Q8H IV 02/05/25 16:30 02/06/25 08:59 02/06/25 00:39 100 MLS/HR Laboratory Results Laboratory Tests 02/02/25 03:38 Labs and/or images reviewed: Labs reviewed by me, Image(s) reviewed by me Assessment/Plan Assessment/Plan Acute distal left tib fracture: Orthopedic consult by Dr. Greenfield appreciated, status post surgery on 02/05/2025 Bilateral pubic rami fracture Mechanical fall from ladder Uncontrolled diabetes aggressive insulin sliding scale , Lantus 20 units HS, continue metformin Hypercholesterolemia Hypertension Schizophrenia: Resume home medications Chronic alcohol abuse Chronic smoking Marijuana abuse Time spent 45 minutes Patient is full code Continue Current management Plan discussed with: Patient My Orders Orders - BALBIR ABDI MD Procedure Category Date Status Time L Tib Fib Xray XY 02/05/25 Resulted 11:36 C Arm Fluoroscopy Up XY 02/05/25 Resulted To 60min 11:36 Date of Service: Feb 06, 2025 Billing Provider: BALBIR ABDI MD Common Visit Codes: [id number] INP/OBS CARE(HIGH) BALBIR ABDI MD Feb 06, 2025 08:23
[2025-02-06] MEDS ORDERED: DEXTROSE (50%) 50ML SYRG IV PRN (08:30)
[2025-02-06] MEDS: HYDROmorphone HCL 2 MG/ML VL/or syr IV PRN (11:39)
[2025-02-06] MEDS: ACCU-CHEK COMFORT CURVE STRIP VI SCH (12:53)
[2025-02-06] MEDS: InsuLIN REG 1unit/0.01ml Soln (100units/ml) SC SCH (14:34)
[2025-02-06] MEDS: INSULIN LANTUS (GLARGINE) 1 /0.01ml (100units/ml) SC SCH (21:43)
[2025-02-07] VITALS (8 sets, daily range): BP systolic 113–143; BP diastolic 77–102; PULSE 69–133; RESP 16–19; TEMP 97.5–98.2; O2SAT 94–97
--- NOTE | 2025-02-07 08:10 | DVHPN2 ---
Reviewed: Care Plan, H&P, Labs, Medications, Previous Orders, Radiology Changes from previous H/P or p: No Changes Eyes: No Pain, No Vision change, No Conjunctivae inflammation, No Eyelid inflammation, No Other, No Redness ENT: No Ear pain, No Ear discharge, No Nose pain, No Nose discharge, No Nose congestion, No Mouth pain, No Mouth swelling, No Throat pain, No Throat swelling, No Other Cardiovascular: No Chest Pain, No Palpitations, No Orthopnea, No Paroxysmal Noc. Dyspnea, No Edema, No Lt Headedness, No Other Respiratory: No Cough, No Dry, No Shortness of breath, No SOB with excertion, No Wheezing, No Hemoptysis, No Pleuritic Pain, No Sputum, No Other Gastrointestinal: No Nausea, No Vomiting, No Abdominal Pain, No Diarrhea, No Constipation, No Melena, No Hematochezia, No Other Genitourinary: No Dysuria, No Frequency, No Incontinence, No Hematuria, No Retention, No Other Musculoskeletal: other (Left ankle pain.); No neck pain, No shoulder pain, No arm pain, No back pain, No hand pain, No leg pain, No foot pain Skin: No Rash, No Lesions, No Jaundice, No Bruising, No Other Objective Vitals Vital Signs Date Time Temp Pulse Resp B/P (MAP) Pulse Ox O2 Delivery O2 Flow Rate FiO2 02/07/25 06:30 89 18 113/77 02/07/25 05:00 97.8 97 97.8 02/06/25 20:00 Room Air* 0 21 Intake/Output Intake and Output 02/07/25 07:00 Intake Total 3550 ml Output Total 4375 ml Balance -825 ml Intake Oral 3500 ml IV Total 50 ml Output Urine Total 4375 ml # Bowel Movements 2 Medications Current Medications Medications Dose Ordered Sig/Antonia Route Start Time Stop Time Status Last Admin Dose Admin Ceftriaxone Sodium 50 ml @ 100 mls/hr DAILY@2200 IV 02/02/25 22:00 02/06/25 21:40 100 MLS/HR Thiamine HCl 100 mg DAILY IV 02/02/25 10:02/06/25 11:46 100 MG Folic Acid 1 mg/ Dextrose 50.2 ml @ 200.8 mls/ hr DAILY INJ 02/02/25 10:00 02/06/25 12:40 200.8 MLS/HR Dextrose 50 ml UD PRN IV 02/01/25 22:30 Cancel Sodium Chloride 1,000 ml @ 60 mls/hr [id number] IV 02/01/25 22:30 02/06/25 02:13 60 MLS/HR Acetaminophen/ Hydrocodone Bitart 1 tab Q4HP PRN PO 02/01/25 22:30 02/06/25 00:45 1 TAB Ondansetron HCl 4 mg Q4HP PRN IV 02/01/25 22:30 02/02/25 08:47 4 MG Docusate Sodium 100 mg BIDPRN PRN PO 02/01/25 22:30 Enoxaparin Sodium 40 mg DAILY SC 02/02/25 10:00 02/06/25 11:44 40 MG Multivitamins 1 tab DAILY PO 02/02/25 10:00 02/06/25 11:43 1 TAB Acetaminophen 650 mg Q6HP PRN PO 02/01/25 22:30 Nitroglycerin 0.4 mg Q5MINP PRN SL 02/01/25 22:30 Nicotine 1 patch DAILY TD 02/03/25 10:00 02/06/25 11:43 1 PATCH Morphine Sulfate 2 mg Q30M PRN IV 02/02/25 09:15 Cyclobenzaprine HCl 10 mg Q8HPRN PRN PO 02/02/25 19:00 02/04/25 02:29 10 MG Atorvastatin Calcium 20 mg HS PO 02/03/25 22:00 02/06/25 21:41 20 MG Metformin HCl 500 mg BID PO 02/03/25 22:00 02/06/25 11:44 500 MG Venlafaxine HCl 150 mg DAILY PO 02/04/25 10:00 02/06/25 11:44 150 MG Patient Own Medication 1 BID PO 02/03/25 22:00 02/06/25 12:47 1 Hydromorphone HCl 2 mg Q3HPRN PRN IV 02/06/25 08:30 02/07/25 06:30 2 MG Insulin Glargine 20 units HS SC 02/06/25 22:00 02/06/25 21:43 20 UNITS Diagnostic Test (Pha) 1 strip ACHS 02/06/25 11:30 02/07/25 06:28 1 STRIP Insulin Human Regular ACHS SC 02/06/25 11:30 02/07/25 06:29 8 UNITS Dextrose 50 ml UD PRN IV 02/06/25 08:30 Laboratory Results Laboratory Tests 02/02/25 03:38 Labs and/or images reviewed: Labs reviewed by me, Image(s) reviewed by me Assessment/Plan Assessment/Plan Acute distal left tib fracture: Orthopedic consult by Dr. Jean Pierre [place], status post surgery on 02/05/2025, external fixator in place Bilateral pubic rami fracture Mechanical fall from ladder Uncontrolled diabetes aggressive insulin sliding scale , Lantus 20 units HS, continue metformin Hypercholesterolemia Hypertension Schizophrenia: Resume home medications Chronic alcohol abuse Chronic smoking Marijuana abuse Time spent 45 minutes Patient is full code Continue Current management Plan discussed with: Patient My Orders Orders - BALBIR ABDI MD Procedure Category Date Status Time Hydromorphone PHA 02/06/25 In Process Injection (Dilaudid 08:30 Insulin Lantus PHA 02/06/25 In Process (Glargine) (Lantus) 22:00 Glucose Blood PHA 02/06/25 In Process (Accu-Chek Comfort 11:30 Insulin R (Human) PHA 02/06/25 In Process (Insulin R) 11:30 Dextrose 50% Syringe PHA 02/06/25 In Process 08:30 Date of Service: Feb 07, 2025 Billing Provider: BALBIR ABDI MD Common Visit Codes: [id number] INP/OBS CARE(HIGH) BALBIR ABDI MD Feb 07, 2025 08:10
[2025-02-08] VITALS (7 sets, daily range): BP systolic 116–139; BP diastolic 73–96; PULSE 83–101; RESP 16–20; TEMP 98.2–99; O2SAT 95–97
--- NOTE | 2025-02-08 08:15 | DVHPN2 ---
Reviewed: Care Plan, H&P, Labs, Medications, Previous Orders, Radiology Changes from previous H/P or p: No Changes Eyes: No Pain, No Vision change, No Conjunctivae inflammation, No Eyelid inflammation, No Other, No Redness ENT: No Ear pain, No Ear discharge, No Nose pain, No Nose discharge, No Nose congestion, No Mouth pain, No Mouth swelling, No Throat pain, No Throat swelling, No Other Cardiovascular: No Chest Pain, No Palpitations, No Orthopnea, No Paroxysmal Noc. Dyspnea, No Edema, No Lt Headedness, No Other Respiratory: No Cough, No Dry, No Shortness of breath, No SOB with excertion, No Wheezing, No Hemoptysis, No Pleuritic Pain, No Sputum, No Other Gastrointestinal: No Nausea, No Vomiting, No Abdominal Pain, No Diarrhea, No Constipation, No Melena, No Hematochezia, No Other Genitourinary: No Dysuria, No Frequency, No Incontinence, No Hematuria, No Retention, No Other Musculoskeletal: other (Left ankle pain.); No neck pain, No shoulder pain, No arm pain, No back pain, No hand pain, No leg pain, No foot pain Skin: No Rash, No Lesions, No Jaundice, No Bruising, No Other Objective Vitals Vital Signs Date Time Temp Pulse Resp B/P (MAP) Pulse Ox O2 Delivery O2 Flow Rate FiO2 02/08/25 05:00 98.2 88 16 127/74 (91) 96 98.2 02/07/25 20:00 Room Air* 0 21 Intake/Output Intake and Output 02/08/25 07:00 Intake Total 8450 ml Output Total 6700 ml Balance 1750 ml Intake Oral 8400 ml IV Total 50 ml Output Urine Total 6700 ml # Bowel Movements 2 Medications Current Medications Medications Dose Ordered Sig/Antonia Route Start Time Stop Time Status Last Admin Dose Admin Ceftriaxone Sodium 50 ml @ 100 mls/hr DAILY@2200 IV 02/02/25 22:00 02/07/25 21:21 100 MLS/HR Thiamine HCl 100 mg DAILY IV 02/02/25 10:02/07/25 12:00 100 MG Folic Acid 1 mg/ Dextrose 50.2 ml @ 200.8 mls/ hr DAILY INJ 02/02/25 10:02/07/25 12:06 200.8 MLS/HR Dextrose 50 ml UD PRN IV 02/01/25 22:30 Cancel Sodium Chloride 1,000 ml @ 60 mls/hr [id number] IV 02/01/25 22:30 02/07/25 12:12 60 MLS/HR Acetaminophen/ Hydrocodone Bitart 1 tab Q4HP PRN PO 02/01/25 22:30 02/07/25 21:21 1 TAB Ondansetron HCl 4 mg Q4HP PRN IV 02/01/25 22:30 02/02/25 08:47 4 MG Docusate Sodium 100 mg BIDPRN PRN PO 02/01/25 22:30 Enoxaparin Sodium 40 mg DAILY SC 02/02/25 10:00 02/07/25 12:01 40 MG Multivitamins 1 tab DAILY PO 02/02/25 10:00 02/07/25 12:01 1 TAB Acetaminophen 650 mg Q6HP PRN PO 02/01/25 22:30 Nitroglycerin 0.4 mg Q5MINP PRN SL 02/01/25 22:30 Nicotine 1 patch DAILY TD 02/03/25 10:00 02/07/25 12:06 1 PATCH Morphine Sulfate 2 mg Q30M PRN IV 02/02/25 09:15 Cyclobenzaprine HCl 10 mg Q8HPRN PRN PO 02/02/25 19:00 02/04/25 02:29 10 MG Atorvastatin Calcium 20 mg HS PO 02/03/25 22:00 02/07/25 21:21 20 MG Metformin HCl 500 mg BID PO 02/03/25 22:00 02/07/25 21:22 500 MG Venlafaxine HCl 150 mg DAILY PO 02/04/25 10:00 02/07/25 12:00 150 MG Patient Own Medication 1 BID PO 02/03/25 22:00 02/06/25 12:47 1 Hydromorphone HCl 2 mg Q3HPRN PRN IV 02/06/25 08:30 02/08/25 03:22 2 MG Insulin Glargine 20 units HS SC 02/06/25 22:00 02/07/25 21:23 20 UNITS Diagnostic Test (Pha) 1 strip ACHS 02/06/25 11:30 02/08/25 06:54 1 STRIP Insulin Human Regular ACHS SC 02/06/25 11:30 02/08/25 06:55 6 UNITS Dextrose 50 ml UD PRN IV 02/06/25 08:30 Laboratory Results Laboratory Tests 02/02/25 03:38 Labs and/or images reviewed: Labs reviewed by me, Image(s) reviewed by me Assessment/Plan Assessment/Plan Acute distal left tib fracture: Orthopedic consult by Dr. Greenfield appreciated, status post surgery on 02/05/2025, external fixator in place Bilateral pubic rami fracture Mechanical fall from ladder Uncontrolled diabetes aggressive insulin sliding scale , Lantus 20 units HS, continue metformin Hypercholesterolemia Hypertension Schizophrenia: Resume home medications Chronic alcohol abuse Chronic smoking Marijuana abuse Time spent 45 minutes Patient is full code Continue Current management Patient will be discharged to assisted facility for physical therapy and rehab Plan discussed with: Patient Date of Service: Feb 08, 2025 Billing Provider: BALBIR ABDI MD Common Visit Codes: [id number] INP/OBS CARE(HIGH) BALBIR ABDI MD Feb 08, 2025 08:15
--- NOTE | 2025-02-08 08:27 | DVHDS2 ---
Discharge Summary Date of Admission Feb 01, 2025 at 22:21 Date of Discharge: Feb 08, 2025 Admitting Diagnosis Left tib-fib fracture Wounds: Left tib-fib fracture Labs/Diagnostic Data: Laboratory Results Test 02/08/25 06:28 02/02/25 17:59 02/02/25 13:15 02/02/25 03:38 POC Glucose 293 mg/dl (70-106) Prothrombin Time 10.9 sec (9.3-11.8) Prothrombin Time INR 1.03 (0.9-1.15) Hemoglobin A1c 8.6 % A1C (<5.7) Urine Opiates Screen Pos (NEGATIVE) Urine Fentanyl Screen Neg (NEGATIVE) Urine Barbiturates Screen Neg (NEGATIVE) Urine Phencyclidine Screen Neg (NEGATIVE) Urine Amphetamines Screen Neg (NEGATIVE) Urine Benzodiazepines Screen Pos (NEGATIVE) Urine Cocaine Screen Neg (NEGATIVE) Urine Cannabinoids Screen Pos (NEGATIVE) White Blood Count 9.1 10^3/uL (4.4-10.8) Red Blood Count 4.73 10^6/uL (4.5-5.90) Hemoglobin 15.7 g/dL (13.5-17.5) Hematocrit 43.7 % (41.0-53.0) Mean Corpuscular Volume 92.5 fL (80.0-100.0) Mean Corpuscular Hemoglobin 33.2 pg (28.0-32.0) Mean Corpuscular Hemoglobin Concent 36.0 g/dL (32.0-36.0) Red Cell Distribution Width 12.9 % (11.8-14.3) Platelet Count 143 10^3/uL (140-450) Mean Platelet Volume 8.5 fL (6.9-10.8) Neutrophils (%) (Auto) 70.5 % (37.0-80.0) Lymphocytes (%) (Auto) 16.3 % (10.0-50.0) Monocytes (%) (Auto) 11.0 % (0.0-12.0) Eosinophils (%) (Auto) 1.7 % (0.0-7.0) Basophils (%) (Auto) 0.5 % (0.0-2.0) Neutrophils # (Auto) 6.4 10 ^3/uL (1.6-8.6) Lymphocytes # (Auto) 1.5 10 ^3/uL (0.4-5.4) Monocytes # (Auto) 1.0 10 ^3/uL (0-1.3) Eosinophils # (Auto) 0.2 10 ^3/uL (0-0.8) Basophils # (Auto) 0 10 ^3/uL (0-0.2) Nucleated Red Blood Cells 0.2 % Sodium Level 136 mmol/L (136-145) Potassium Level 3.9 mmol/L (3.5-5.1) Chloride Level 102 mmol/L (98-107) Carbon Dioxide Level 21 mmol/L (20-31) Anion Gap 13 (5-15) Blood Urea Nitrogen < 5 mg/dL (9-23) Creatinine 0.80 mg/dL (0.700-1.30) Glomerular Filtration Rate Calc 118 mL/min (>90) BUN/Creatinine Ratio 6.3 (10.0-20.0) Serum Glucose 192 mg/dL (74-106) Calcium Level 8.9 mg/dL (8.7-10.4) Total Bilirubin 1.1 mg/dL (0.2-1.0) Aspartate Amino Transferase (AST) 100 U/L (13-40) Alanine Aminotransferase (ALT) 129 U/L (7-40) Alkaline Phosphatase 93 U/L (46-116) Total Protein 7.3 g/dL (5.7-8.2) Albumin 4.3 g/dL (3.2-4.8) Test 02/01/25 19:05 Activated Partial Thromboplast Time 29.3 SEC (24.5-34.5) Plasma/Serum Blood Alcohol 80.2 mg/dL (<10) Other Laboratory Tests 02/02/25 03:38 Brief Hx & Hospital Course: 34-year-old male with a history of hypertension hypercholesterolemia schizophrenia alcohol abuse chronic smoking marijuana abuse uncontrolled diabetes had a mechanical fall from a ladder and sustained distal left tibial fracture seen by orthopedic Dr Greenfield who placed him on external fixator. Received physical therapy pain medication being [facility] and physical therapy. He will follow up with Dr. Greenfield in two weeks for distal tibial fracture definitive surgery Consults/Reason for consult Orthopedic Dr Greenfield Operations or Procedures External fixator left tib-fib fracture Condition at Discharge: Fair Final Diagnosis/Problems List Acute distal left tib fracture: Orthopedic consult by Dr. Greenfield appreciated, status post surgery on 02/05/2025, external fixator in place Bilateral pubic rami fracture Mechanical fall from ladder Uncontrolled diabetes aggressive insulin sliding scale , Lantus 20 units HS, continue metformin Hypercholesterolemia Hypertension Schizophrenia: Resume home medications Chronic alcohol abuse Chronic smoking Marijuana abuse Discharge Disposition: [facility] Facility Discharge Instruct/Medications Diet: Regular Activity: Light activity Follow Up/Referral: Follow up with the orthopedic Dr Greenfield in two weeks for definitive left tibia fracture surgery Medications: see list Scheduled Atorvastatin Calcium (Atorvastatin Calcium), 1 TAB PO DAILY, (Reported) Metformin Hydrochloride (Metformin Hcl), 1 TAB PO BID, (Reported) Venlafaxine Hcl (Venlafaxine Hcl Er), 1 CAP PO DAILY, (Reported) Ziprasidone HCl (Ziprasidone HCl), 1 CAP PO BID, (Reported) 39 (Time taken for discharge summary 39 minutes) Discharge Statement: "Patient was advised to return to the ER or call 911 if any headaches, dizziness, shortness of breath, chest pain, abdominal pain, bleeding, fevers, or worsening of medical condition. Patient was counseled about treatment plan, medications, possible side effects, patientverbalized understanding. All questions were answered to the best of my ability. This discharge took greater then 30 minutes in planning, reviewing documentation, counseling the patient, and discussing with other team members." ASSESSMENT ASSESSMENT Hospital Course Improved Assessment Acute distal left tib fracture: Orthopedic consult by Dr. Greenfield appreciated, status post surgery on 02/05/2025, external fixator in place Bilateral pubic rami fracture Mechanical fall from ladder Uncontrolled diabetes aggressive insulin sliding scale , Lantus 20 units HS, continue metformin Hypercholesterolemia Hypertension Schizophrenia: Resume home medications Chronic alcohol abuse Chronic smoking Marijuana abuse Date of Service: Feb 08, 2025 Billing Provider: BALBIR ABDI MD Common Visit Codes: 18609-CSL/OBS DISCH DAY >30min BALBIR ABDI MD Feb 08, 2025 08:27
[2025-02-08 13:11] LABS: COVID19 ANTIGEN SOFIA FIA NEGATIVE (NEGATIVE)
[2025-02-08 15:18] LABS: Hematocrit 43.7 % (41.0-53.0); Hemoglobin 15.4 g/dL (13.5-17.5); Mean Corpuscular Hemoglobin 33.2 pg (28.0-32.0); Mean Corpuscular Volume 94.2 fL (80.0-100.0); Nucleated Red Blood Cells % 0.0 %
[2025-02-08 15:31] LABS: Albumin 4.4 g/dL (3.2-4.8); Anion Gap 11 (5-15); BUN/Creatinine Ratio 13.2 (10.0-20.0); Bilirubin, Total 0.7 mg/dL (0.2-1.0); Blood Urea Nitrogen 10 mg/dL (9-23); Calcium 9.8 mg/dL (8.7-10.4); Carbon Dioxide 23 mmol/L (20-31); Chloride 101 mmol/L (98-107); Potassium 4.0 mmol/L (3.5-5.1); Total Protein 7.6 g/dL (5.7-8.2)
[2025-02-08 15:35] LABS: Alanine Aminotransferase 137 U/L (7-40); Alkaline Phosphatase 125 U/L (46-116); Glucose 179 mg/dL (74-106); Sodium 135 mmol/L (136-145)
--- NOTE | 2025-02-14 16:07 | DVHOP2 ---
Operative Report - 2 Report Details Date: 02/06/25 Preop Diagnosis: Left distal tibia/fibula fracture Postop Diagnosis: Left distal tibia/fibula fracture Surgeon: Jacob Snyder MD Enamel Sprayer: Jamie XIE Anesthesiologist: SHERIDAN Anesthesia: General Implant: see implant log Consent: The patient was informed of the risks and benefits of the procedure. These include but are not limited to complications of anesthesia, postoperative infection, incomplete relief of symptoms, recurrence of symptoms, damage to blood vessels, nerves and tendons, deep venous thrombosis, pulmonary embolism and possible need for repeat surgery in the future. Estimated Blood Loss: 2 cc Name of Procedure Performed 1.Closed reduction and placement of external fixation of left distal tibia/fibula fracture; 2. INtraop fluoroscopy Procedure Details Procedure Details: The patient presented with a left distal tibia and fibula fracture, requiring stabilization due to [open fracture, soft tissue compromise, polytrauma, or other indication]. External fixation was chosen to provide temporary or definitive stabilization, maintain alignment, and allow for soft tissue management. Description of Procedure: The patient was brought to the operating room and placed supine on the operating table. The left lower extremity was prepped and draped in the usual sterile fashion. Appropriate anesthesia was administered. Under fluoroscopic guidance, the fracture was visualized and the limb was positioned to restore length, alignment, and rotation. Pin sites were marked on the anteromedial aspect of the tibia, avoiding areas of fracture and neurovas cular structures. Two Schanz pins were placed proximally in the tibial diaphysis and two Schanz pins were placed distally in the tibial metaphysis, avoiding the fracture zone. Each pin site was incised with a #15 blade, and the soft tissue was spread blun tly down to bone. The pins were inserted using a power drill under fluoroscopic control to ensure proper placement and avoid penetration of the far cortex. The external fixator frame was then assembled and attached to the pins. The frame was adjusted to achieve and maintain appropriate length, alignment, and rotation of the distal tibia and fibula. Final position was confirmed with fluoroscopy, demonstrating satisfactory reduction and stabilization of the fracture. All pin sites were irrigated with sterile saline and dressed with sterile gauze. The stability of the construct was confirmed. The patient tolerated the procedure well and was transferred to the recovery area in stable condition. Condition Fair Disposition Still a Patient EVELYN VEE MD Feb 14, 2025 16:07
== END 2025-02-08 19:40 | DRG 959 ==
LOC: EDBD 17:30 → EDSEX 17:30 → ER 17:30 → OVERFLOW 22:21 → TELE-CENTR 02-02 16:16
PROVIDERS: ADMIT Family Medicine; ATTEND Family Medicine
PROC: 0QSH35Z Reposition Left Tibia with External Fixation Device, Percutaneous Approach (ICD-10-PCS; 2025-02-05)
PROC: 0QSK35Z Reposition Left Fibula with External Fixation Device, Percutaneous Approach (ICD-10-PCS; principal; 2025-02-05 10:24)
DX: S82.252B Displaced comminuted fracture of shaft of left tibia, initial encounter for open fracture type I or II (principal); S32.591A Other specified fracture of right pubis, initial encounter for closed fracture; S72.002A Fracture of unspecified part of neck of left femur, initial encounter for closed fracture; S82.452B Displaced comminuted fracture of shaft of left fibula, initial encounter for open fracture type I or II; S32.592A Other specified fracture of left pubis, initial encounter for closed fracture; I10 Essential (primary) hypertension; D72.829 Elevated white blood cell count, unspecified; E78.00 Pure hypercholesterolemia, unspecified; F10.129 Alcohol abuse with intoxication, unspecified; E87.8 Other disorders of electrolyte and fluid balance, not elsewhere classified; F12.10 Cannabis abuse, uncomplicated; F20.9 Schizophrenia, unspecified; W11.XXXA Fall on and from ladder, initial encounter; E11.9 Type 2 diabetes mellitus without complications; F17.210 Nicotine dependence, cigarettes, uncomplicated; Z20.822 Contact with and (suspected) exposure to COVID-19; Y90.0 Blood alcohol level of less than 20 mg/100 ml; Z79.4 Long term (current) use of insulin; Z79.899 Other long term (current) drug therapy; Y93.89 Activity, other specified; Y92.89 Other specified places as the place of occurrence of the external cause; Y99.8 Other external cause status
CPT/HCPCS: 29515; 36415; 71045; 72170; 73590; 73630; 73700; 76000; 80053; 80307; 80320; 82962; 83036; 85025; 85610; 85730; 86850; 86900; 86901; 87426; 97116; 97163; 97530; G0378; J0131; J1100; J1815; J1885; J2250; J2405; J2704; J3490; J7060